=== PATIENT | female | born 1960 | race Caucasian/White ===

== ENCOUNTER 2017-05-04 10:18 | Day surgery (SDC) | payer OTHER ==
[2017-04-30 16:05] VITALS: BMI 28.3
[~2017-05-04 10:18] MED LIST: LACTATED RINGERS 1,000 ML IV SCH
[2017-05-04 11:17] VITALS: RESP 16; TEMP 97.6
--- NOTE | 2017-05-04 11:17 | P.GSHP ---
History of Present Illness H&P Date: 05/04/17 Chief Complaint: GERD This a 56-year-old female referred from Dr. Marie. Patient presents today for EGD. She's had issues with GERD. Past Medical History Past Medical History: Chest Pain / Angina, Fibromyalgia, GERD/Reflux, Supraventricular Tachycardia (SVT) Additional Past Medical History / Comment(s): migraines, arthritis, "broken rt ear drum" History of Any Multi-Drug Resistant Organisms: None Reported Past Surgical History: Cardiac Ablation, Ear Surgery, Orthopedic Surgery, Tonsillectomy, Tubal Ligation Additional Past Surgical History / Comment(s): rt ear x 2, rt little finger for dislocations Past Anesthesia/Blood Transfusion Reactions: Motion Sickness Smoking Status: Former smoker - Past Family History Mother Family Medical History: Cancer Sister(s) Family Medical History: Cancer Medications and Allergies Home Medications Medication Instructions Recorded Confirmed Type Diazepam [Diazepam] 5 mg PO DAILY PRN 01/18/14 05/04/17 History Acetaminophen with Codeine 2 tab PO BID PRN 04/30/17 05/04/17 History [Tylenol w/codeine #3] Aspirin/Acetaminophen/Caffeine 1 each PO BID PRN 04/30/17 05/04/17 History [Excedrin Migraine Caplet] Fish Oil/Dha/Epa [Fish Oil 1,200 1 each PO DAILY 04/30/17 05/04/17 History mg Fish Oil] Lysine [l-Lysine] 500 mg PO DAILY 04/30/17 05/04/17 History Multivitamins, Thera [Multivitamin 1 tab PO DAILY 04/30/17 05/04/17 History (formulary)] Allergies Allergy/AdvReac Type Severity Reaction Status Date / Time No Known Allergies Allergy Verified 04/30/17 15:51 Surgical - Exam - General well developed, no distress - Eyes PERRL - ENT normal pinna - Neck no masses - Respiratory normal expansion - Cardiovascular Rhythm: regular Assessment and Plan Assessment: GERD. We'll perform EGD.
[2017-05-04] MEDS ORDERED: LIDOCAINE 1% 20 ML VIAL (10MG/ML) FOR IV START INTRADERMA ONE (11:20)
[2017-05-04] MEDS ORDERED: LIDOCAINE 1% INJ 10MG/ML (20 ML MDV) ONE (11:23)
[2017-05-04] MEDS ORDERED: MIDAZOLAM 2 MG/2 ML VIAL ONE (11:23)
[2017-05-04] MEDS ORDERED: PROPOFOL 10 MG/ML 20 ML VIAL IV ONE (11:23)
--- NOTE | 2017-05-04 11:37 | P.OP ---
Date of Procedure: 05/04/17 Preoperative Diagnosis: GERD Postoperative Diagnosis: Mild duodenitis Mild antral gastritis Hiatal hernia Esophagitis Procedure(s) Performed: EGD Anesthesia: MAC Surgeon: Zana Rowley Pathology: other (Antrum, esophagus) Condition: stable Description of Procedure: The patient's placed on the endoscopy table lateral position. She received IV sedation. The gastroscope placed oropharynx and passed into the esophagus and stomach. Scope was then placed through the pylorus. The first and second portion of duodenum was examined. There appeared to be some mild inflammation. This area is biopsied. The scope was then brought back and the antrum this. Mildly inflamed. A biopsies performed. The scope was unretroflexed and remainder some appeared normal. There is moderate size hiatal hernia. The GE junction was at 38 cm. The distal esophagus appeared inflamed a biopsies performed. The proximal esophagus appeared normal. Scope was withdrawn for patient.
[2017-05-04 11:58] VITALS: BP 102/64; PULSE 83
== END 2017-05-04 12:15 | disposition home or self-care (01) ==
LOC: ORWHC2ENDO 10:18
PROVIDERS: ATTEND Surgery
DX: K21.0 Gastro-esophageal reflux disease with esophagitis (principal); K29.50 Unspecified chronic gastritis without bleeding; K29.80 Duodenitis without bleeding; K44.9 Diaphragmatic hernia without obstruction or gangrene; M79.7 Fibromyalgia; M19.90 Unspecified osteoarthritis, unspecified site; Z79.899 Other long term (current) drug therapy; Z87.891 Personal history of nicotine dependence; Z80.9 Family history of malignant neoplasm, unspecified
CPT/HCPCS: 43239; 81025; 88305; 88342; J2250; J2001; J2704

== ENCOUNTER → 2017-05-13 | Outpatient (CLI) | payer OTHER ==
[2017-05-13 16:41] LABS: Basophils % (A) 1 %; CH 31.3; CHCM 33.7; Eosinophils # (A) 0.2 k/uL (0-0.7); Eosinophils % (A) 3 %; HCT 37.5 % (34.0-46.0); HDW 2.74; HGB 12.2 gm/dL (11.4-16.0); Luc # (Auto) 0.23; Luc % (Auto) 3; Lymphocytes # (A) 2.5 k/uL (1.0-4.8); Lymphocytes % (A) 37 %; MCH 30.4 pg (25.0-35.0); MCHC 32.6 g/dL (31.0-37.0); MCV 93.3 fL (80.0-100.0); Mean Platelet Volume 7.2; Monocytes # (A) 0.4 k/uL (0-1.0); Monocytes % (A) 5 %; Neutrophils # (A) 3.5 k/uL (1.3-7.7); Neutrophils % (A) 51 %; RBC 4.02 m/uL (3.80-5.40); RDW 12.9 % (11.5-15.5); WBC 6.8 k/uL (3.8-10.6); WBC (Perox) 6.79
== END ==
LOC: LABPAT 15:58
PROVIDERS: ATTEND Surgery
DX: Z01.812 Encounter for preprocedural laboratory examination (principal); K21.0 Gastro-esophageal reflux disease with esophagitis; D64.9 Anemia, unspecified; F17.200 Nicotine dependence, unspecified, uncomplicated
CPT/HCPCS: 36415; 85025

== ENCOUNTER → 2017-06-26 | Outpatient (CLI) | payer OTHER ==
--- NOTE | 2017-06-26 11:06 | FL ---
Barium swallow HISTORY: Epigastric pain, status post hiatal hernia repair surgery Correlation to previous exam 05/20/2017 She was given high density barium to drink. 1 minute 38 seconds fluoroscopy time supplied. 49 images. The swallowing mechanism is normal. Postop changes are noted at the gastroesophageal junction. Some m inimal tertiary esophageal contractions were transient. There is no obstruction to flow. No gastroeso phageal reflux evident. No evident pneumoperitoneum. No hiatal hernia. There is some improvement in t he edema seen on previous exam. Column of contrast across the gastroesophageal junction shows some im provement in caliber. IMPRESSION: Postop changes. No evident complication status post hiatal hernia repair.
== END | disposition home or self-care (01) ==
LOC: RADFLMAIN 10:08
PROVIDERS: ATTEND Surgery
DX: R10.13 Epigastric pain (principal); Z98.890 Other specified postprocedural states
CPT/HCPCS: 74220

== ENCOUNTER → 2017-12-07 | Outpatient (CLI) | payer OTHER ==
--- NOTE | 2017-12-08 10:25 | MM ---
Reason for exam: screening (asymptomatic). Last mammogram was performed 1 year and 9 months ago. History: Family history of breast cancer in mother at age 50 and breast cancer in aunt at age 40. Physical Findings: A clinical breast exam by your physician is recommended on an annual basis and results should be correlated with mammographic findings. MG Screening Mammo w CAD Bilateral CC and MLO view(s) were taken. Prior study comparison: February 28, 2016, mammogram, performed at [facility]. May 17, 2013, mammogram, performed at [facility]. There are scattered fibroglandular densities. Finding: There are typically benign round, grouped/clustered calcifications in the right breast. There is no discrete abnormality. ASSESSMENT: Benign, BI-RAD 2 RECOMMENDATION: Routine screening mammogram of both breasts in 1 year.
== END | disposition home or self-care (01) ==
LOC: RADMAMWWP 14:45
PROVIDERS: ATTEND Family Medicine
DX: Z12.31 Encounter for screening mammogram for malignant neoplasm of breast (principal)
CPT/HCPCS: 77067

== ENCOUNTER 2018-02-03 08:38 | Day surgery (SDC) | payer OTHER ==
[2018-02-01 11:38] VITALS: BMI 28.3
[~2018-02-03 08:38] MED LIST changes: +LIDOCAINE 1% 20 ML VIAL (10MG/ML) FOR IV START INTRADERMA PRN
[2018-02-03 09:39] VITALS: RESP 16; TEMP 97.6
--- NOTE | 2018-02-03 10:15 | P.GSHP ---
History of Present Illness H&P Date: 02/03/18 Chief Complaint: Screening colonoscopy, GERD This a 57-year-old female referred from Dr. Lauren Vale. Patient rents today for EGD and colonoscopy. Had some issues with GERD. Past Medical History Past Medical History: Chest Pain / Angina, Fibromyalgia, GERD/Reflux, Musculoskeletal Disorder, Neurologic Disorder, Supraventricular Tachycardia (SVT ) Additional Past Medical History / Comment(s): migraines, arthritis, "broken rt ear drum", degenerative disc disease, " History of Any Multi-Drug Resistant Organisms: None Reported Past Surgical History: Cardiac Ablation, Ear Surgery, Hernia Repair, Orthopedic Surgery, Tonsillectomy, Tubal Ligation Additional Past Surgical History / Comment(s): rt ear x 2, rt little finger for dislocations Past Anesthesia/Blood Transfusion Reactions: No Reported Reaction Smoking Status: Former smoker - Past Family History Mother Family Medical History: Cancer Sister(s) Family Medical History: Cancer Medications and Allergies Home Medications Medication Instructions Recorded Confirmed Type Diazepam 5 mg PO HS PRN 01/18/14 02/03/18 History Aspirin/Acetaminophen/Caffeine 1 tab PO BID PRN 04/30/17 02/01/18 History [Excedrin Migraine Caplet] Fish Oil/Dha/Epa [Fish Oil 1,200 1 cap PO DAILY 04/30/17 02/01/18 History mg Fish Oil] Multivitamins, Thera [Multivitamin 1 tab PO DAILY 04/30/17 02/01/18 History (formulary)] Allergies Allergy/AdvReac Type Severity Reaction Status Date / Time No Known Allergies Allergy Verified 02/01/18 11:32 Surgical - Exam Vital Signs Temp Pulse Resp BP Pulse Ox 97.6 F 75 16 111/76 96 02/03/18 09:38 02/03/18 09:38 02/03/18 09:38 02/03/18 09:38 02/03/18 09:38 - General well developed, well nourished, no distress - Eyes PERRL - ENT normal pinna - Neck no masses - Respiratory normal expansion - Cardiovascular Rhythm: regular - Abdomen Abdomen: soft, non tender Assessment and Plan Assessment: GERD we'll perform EGD. We'll also perform screening colonoscopy.
[2018-02-03] MEDS ORDERED: LIDOCAINE 1% INJ 10MG/ML (20 ML MDV) ONE (10:22)
[2018-02-03] MEDS ORDERED: PROPOFOL 10 MG/ML 20 ML VIAL IV ONE (10:22)
--- NOTE | 2018-02-03 10:42 | P.OP ---
Date of Procedure: 02/03/18 Preoperative Diagnosis: Epigastric abdominal pain GERD. Screening colonoscopy Postoperative Diagnosis: Antral ulceration No evidence of recurrent hiatal hernia Mild diverticulosis Procedure(s) Performed: EGD Colonoscopy Anesthesia: MAC Surgeon: Zana Rowley Pathology: other (Antral ulcer) Condition: stable Disposition: PACU Description of Procedure: The patient's placed on the endoscopy table in the lateral position. She received IV sedation. The gastroscope placed oropharynx and passed into the esophagus into the stomach. Scope was then placed through the pylorus. The first and second portion of duodenum appeared normal. Scope was then brought back the antrum and there were several small ulcers seen. This area is biopsied. Scope was then retroflexed and the remainder of the stomach appeared normal. There was a previous fundoplication wrap this appeared to be in the appropriate position. There is no evidence of recurrent hiatal hernia. The distal esophagus appeared normal. The GE junction was at 40 cm. The esophagus appeared normal. Scope was withdrawn for patient. Next digital rectal exam was performed. The colonoscope was then placed patient anus passed throughout the entire colon. The ileocecal valve sutures. The cecum, ascending and transverse colon appeared normal. In the descending and sigmoid colon there is mild diverticulosis. There is no evidence of diverticulitis. Scope summer back the rectum and this appeared normal. Scope withdrawn for patient.
[2018-02-03 11:11] VITALS: BP 131/83; PULSE 70
== END 2018-02-03 11:47 | disposition home or self-care (01) ==
LOC: ORWHC2ENDO 08:38
PROVIDERS: ATTEND Surgery
DX: Z12.11 Encounter for screening for malignant neoplasm of colon (principal); K57.90 Diverticulosis of intestine, part unspecified, without perforation or abscess without bleeding; M79.7 Fibromyalgia; K21.9 Gastro-esophageal reflux disease without esophagitis; M13.80 Other specified arthritis, unspecified site; Z87.891 Personal history of nicotine dependence; K29.50 Unspecified chronic gastritis without bleeding
CPT/HCPCS: 81025; 88305; 45378; 43239; J2001; J2704

== ENCOUNTER 2018-05-05 08:41 | Day surgery (SDC) | payer OTHER ==
[2018-04-30 10:27] VITALS: BMI 29.4
[~2018-05-05 08:41] MED LIST changes: +DEXAMETHASONE SOD PHOSPHATE 10 MG/ML 1 ML VIAL IV ONE; +HEPARIN SODIUM,PORCINE 5,000 UNIT/ML 1 ML VIAL SQ ONE; -LIDOCAINE 1% 20 ML VIAL (10MG/ML) FOR IV START INTRADERMA PRN; +ONDANSETRON 4 MG/2 ML VIAL IVP ONE; +ceFAZolin IN SWFI 2 GM/20 ML SYRINGE IVP ONE
[2018-05-05] MEDS ORDERED: LIDOCAINE 1% 20 ML VIAL (10MG/ML) FOR IV START INTRADERMA ONE (09:31)
--- NOTE | 2018-05-05 09:40 | P.GSHP ---
History of Present Illness H&P Date: 05/05/18 Chief Complaint: Right upper quadrant pain This is a 57-year-old female presents today for laparoscopic cholecystectomy. Patient's had complaints of right upper quadrant pain. Her recent HIDA scan shows a hyperkinetic gallbladder consistent with biliary hypokinesis and chronic cholecystitis. Past Medical History Past Medical History: Chest Pain / Angina, Fibromyalgia, GERD/Reflux, Musculoskeletal Disorder, Neurologic Disorder, Supraventricular Tachycardia (SVT ) Additional Past Medical History / Comment(s): GALLBLADDER ATTACK, migraines, arthritis, "broken rt ear drum" STATES LETTLE HEARING IN RT EAR, degenerative disc disease, History of Any Multi-Drug Resistant Organisms: None Reported Past Surgical History: Cardiac Ablation, Ear Surgery, Hernia Repair, Orthopedic Surgery, Tonsillectomy, Tubal Ligation Additional Past Surgical History / Comment(s): rt ear x 2, rt little finger for dislocations Past Anesthesia/Blood Transfusion Reactions: No Reported Reaction Smoking Status: Former smoker - Past Family History Mother Family Medical History: Cancer Sister(s) Family Medical History: Cancer Medications and Allergies Home Medications Medication Instructions Recorded Confirmed Type Aspirin/Acetaminophen/Caffeine 1 tab PO BID PRN 04/30/17 04/30/18 History [Excedrin Migraine Caplet] Fish Oil/Dha/Epa [Fish Oil 1,200 1 cap PO DAILY 04/30/17 04/30/18 History mg Fish Oil] Multivitamins, Thera [Multivitamin 1 tab PO DAILY 04/30/17 04/30/18 History (formulary)] Omeprazole 40 mg PO DAILY #60 capsule. 02/03/18 05/05/18 Rx Allergies Allergy/AdvReac Type Severity Reaction Status Date / Time No Known Allergies Allergy Verified 05/05/18 09:04 Surgical - Exam Vital Signs Temp Pulse Resp BP Pulse Ox 97.9 F 65 16 106/68 95 05/05/18 08:59 05/05/18 08:59 05/05/18 08:59 05/05/18 08:59 05/05/18 08:59 - General well developed, no distress - Eyes PERRL - ENT normal pinna - Neck no masses - Respiratory normal expansion - Cardiovascular Rhythm: regular - Abdomen Abdomen: soft, non tender Assessment and Plan Assessment: Hyperkinetic gallbladder Chronic cholecystitis We'll perform laparoscopic cholecystectomy.
[2018-05-05] MEDS ORDERED: GLYCOPYRROLATE 0.2 MG/ML 2 ML VIAL ONE (10:01)
[2018-05-05] MEDS ORDERED: ROCURONIUM BROMIDE 10 MG/ML 10 ML VIAL IV ONE (10:01)
[2018-05-05] MEDS ORDERED: KETOROLAC 30 MG/ML 1 ML VIAL ONE (10:01)
[2018-05-05] MEDS ORDERED: SUCCINYLCHOLINE CHLORIDE 100 MG/5 ML SYR IV ONE (10:01)
[2018-05-05] MEDS ORDERED: MIDAZOLAM 2 MG/2 ML VIAL ONE (10:01)
[2018-05-05] MEDS ORDERED: NEOSTIGMINE 1 MG/ML 10 ML VIAL ONE (10:01)
[2018-05-05] MEDS ORDERED: fentaNYL (PF) 50 MCG/ML 2 ML AMP ONE (10:01)
[2018-05-05] MEDS ORDERED: PROPOFOL 10 MG/ML 20 ML VIAL IV ONE (10:01)
[2018-05-05] MEDS ORDERED: LIDOCAINE 1% INJ 10MG/ML (20 ML MDV) ONE (10:01)
[2018-05-05] MEDS ORDERED: HYDROmorphone (PF) 1 MG/ML ONE (10:01)
[2018-05-05] MEDS ORDERED: BUPIVACAIN-EPI 0.25%-1:200,000 30 ML VIAL SQ ONE (10:28)
[2018-05-05] MEDS ORDERED: LACTATED RINGERS 1,000 ML IV ONE (10:45)
--- NOTE | 2018-05-05 11:04 | P.OP ---
Date of Procedure: 05/05/18 Preoperative Diagnosis: Cholecystitis Postoperative Diagnosis: Cholecystitis Procedure(s) Performed: Laparoscopic cholecystectomy Anesthesia: DOUGLAS Surgeon: Zana Rowley Estimated Blood Loss (ml): 5 Pathology: other (Gallbladder) Condition: stable Disposition: PACU Description of Procedure: The patient was placed on the operating table. The patient received a general endotracheal tube anesthesia. The patients abdomen was prepped and draped in the usual sterile fashion. Through an infraumbilical stab incision, the fascia of the anterior abdominal wall was grasped with a pair of Kochers and then the Veress needle was placed in the peritoneal cavity. Position of the Veress needle was confirmed with positive drop test. The abdomen was then insufflated. After adequate insufflation, the 10 mm trocar was placed in the peritoneal cavity. Following this the laparoscope was placed in the peritoneal cavity. The patient was placed in the head-up, right side up position and then a 5 mm trocar was placed in the right lateral and right subcostal position under direct visualization. A 8 mm trocar was placed in the epigastric position. The gallbladder was grasped in the fundus and infundibulum. Traction on the gallbladder was placed in the lateral and the cephalad positions. The triangle of Calot was visualized.. The cystic duct was bluntly dissected until the union of the cystic duct and common bile duct was seen. The cystic duct was then divided and sealed with the Harmonic scissors. A PDS Endoloop was then placed throughout the cystic duct stump. The cystic artery divided and sealed with the Harmonic scissors. The gallbladder was then removed from the liver bed using Harmonic scissors. The gallbladder was then extracted through the epigastric port site. Operative field was checked for any bleeding spots and Harmonic scissors was used to coagulate the liver bed. The abdomen was irrigated. The trocars were removed. The skin was closed using interrupted 3-0 Vicryl suture. Dermabond dressing were applied. The patient tolerated the procedure well.
[2018-05-05 11:11] VITALS: TEMP 96.8
[2018-05-05] MEDS: HYDROmorphone 0.5 MG/0.5 ML SYRINGE IVP PRN ×3 (11:20→11:38)
[2018-05-05] MEDS ORDERED: ONDANSETRON 4 MG/2 ML VIAL IVP ONE (11:42)
[2018-05-05] MEDS ORDERED: PROMETHAZINE INJ 25 MG/ML 1 ML VIAL IVPB ONE (11:53)
[2018-05-05 12:24] VITALS: RESP 16
[2018-05-05 12:48] VITALS: BP 117/77; PULSE 51
== END 2018-05-05 13:33 | disposition home or self-care (01) ==
LOC: OR 08:41
PROVIDERS: ATTEND Surgery
DX: K81.1 Chronic cholecystitis (principal); K21.9 Gastro-esophageal reflux disease without esophagitis; M79.7 Fibromyalgia; M19.90 Unspecified osteoarthritis, unspecified site; Z87.891 Personal history of nicotine dependence; Z79.899 Other long term (current) drug therapy
CPT/HCPCS: 47562; 81025; 88304; J2250; J1644; J1100; J2550; J2710; J2405; J2001; J3010; J1885; J1170 ×2; J0330; J2704; J0690

== ENCOUNTER → 2018-12-25 | Outpatient (CLI) | payer OTHER ==
--- NOTE | 2018-12-25 10:45 | XR ---
EXAMINATION TYPE: XR abdomen 1V DATE OF EXAM: 12/25/2018 10:36 AM CLINICAL HISTORY: Change in bowel habits per order. TECHNIQUE: Two supine KUB images of the abdomen are obtained. COMPARISON: None. FINDINGS: Scattered gas is seen in non-distended small bowel loops. Gas and fecal material is seen in non-distended colon. Nondigested pill right lower quadrant suspected. Mild to moderate narrowing of both hip joints. IMPRESSION: Overall nonobstructive bowel gas pattern.
[2018-12-25 18:36] LABS: ALT 23 U/L (8-44); AST 19 U/L (13-35); African American GFR (CKD) 112.3 (60.0-200.0); Alkaline Phosphatase 94 U/L (41-126); BUN/Creat Ratio 32.86 Ratio (12.00-20.00); C Reactive Protein <0.4 mg/dL (0.0-0.8); Calcium 9.6 mg/dL (8.7-10.3); Carbon Dioxide 25.9 mmol/L (21.6-31.8); Chloride 107 mmol/L (96-109); Globulin 2.2 g/dL (1.6-3.3); Glucose 108 mg/dL (70-110); Potassium 4.4 mmol/L (3.5-5.5); Sodium 140 mmol/L (135-145); Total Bilirubin 0.3 mg/dL (0.3-1.2); Total Protein 6.6 g/dL (6.2-8.2)
[2018-12-27 11:59] LABS: Gliadin AB IgA, Unit 0.6 U/mL
== END | disposition home or self-care (01) ==
LOC: LABWHC1 10:17
PROVIDERS: ATTEND Internal Medicine
DX: R19.4 Change in bowel habit (principal)
CPT/HCPCS: 36415; 74018; 80053; 83516; 83630; 83993; 84439; 84443; 85652; 86140; 87045; 87046; 87328; 87329

== ENCOUNTER → 2018-12-29 | Outpatient (CLI) | payer OTHER ==
--- NOTE | 2018-12-30 14:54 | MM ---
Reason for exam: screening (asymptomatic). Last mammogram was performed 1 year and 1 month ago. History: Family history of breast cancer in mother at age 50 and breast cancer in aunt at age 40. Physical Findings: A clinical breast exam by your physician is recommended on an annual basis and results should be correlated with mammographic findings. MG Screening Mammo w CAD Bilateral CC and MLO view(s) were taken. Prior study comparison: December 07, 2017, bilateral MG screening mammo w CAD. February 28, 2016, mammogram, performed at [facility]. There are scattered fibroglandular densities. Focal asymmetry stable in the left upper outer quadrant. ASSESSMENT: Benign, BI-RAD 2 RECOMMENDATION: Routine screening mammogram of both breasts in 1 year.
== END | disposition home or self-care (01) ==
LOC: RADMAMWWP 12:30
PROVIDERS: ATTEND Family Medicine
DX: Z12.31 Encounter for screening mammogram for malignant neoplasm of breast (principal); Z80.3 Family history of malignant neoplasm of breast
CPT/HCPCS: 77067

== ENCOUNTER → 2019-08-04 | Day surgery (SDC) | payer OTHER ==
[2019-08-02 18:27] VITALS: BMI 31.1
[~2019-08-04] MED LIST changes: -DEXAMETHASONE SOD PHOSPHATE 10 MG/ML 1 ML VIAL IV ONE; -HEPARIN SODIUM,PORCINE 5,000 UNIT/ML 1 ML VIAL SQ ONE; +LIDOCAINE 1% 20 ML VIAL (10MG/ML) FOR IV START INTRADERMA PRN; +LIDOCAINE 1% INJ 10MG/ML (20 ML MDV) ONE; -ONDANSETRON 4 MG/2 ML VIAL IVP ONE; +PROPOFOL 10 MG/ML 20 ML VIAL IV ONE; -ceFAZolin IN SWFI 2 GM/20 ML SYRINGE IVP ONE
[2019-08-04 07:05] VITALS: TEMP 97
--- NOTE | 2019-08-04 07:54 | P.GSHP ---
History of Present Illness H&P Date: 08/04/19 Chief Complaint: Colitis, diarrhea Is a 58-year-old female with history of diarrhea. Patient rents today for colonoscopy tonight for possible colitis Past Medical History Past Medical History: Chest Pain / Angina, Fibromyalgia, GERD/Reflux, Musculoskeletal Disorder, Neurologic Disorder, Supraventricular Tachycardia (SVT) Additional Past Medical History / Comment(s): Hx migraines, arthritis, "broken rt ear drum" - loss of HEARING IN RT EAR, degenerative disc disease, diarrhea since gallbladder removed History of Any Multi-Drug Resistant Organisms: None Reported Past Surgical History: Cardiac Ablation, Cholecystectomy, Ear Surgery, Hernia Repair, Orthopedic Surgery, Tonsillectomy, Tubal Ligation Additional Past Surgical History / Comment(s): rt ear x 2, rt little finger for dislocations, hiatal hernia surg, Colonoscopy, EGD Past Anesthesia/Blood Transfusion Reactions: No Reported Reaction Smoking Status: Former smoker - Past Family History Mother Family Medical History: Cancer Sister(s) Family Medical History: Cancer Medications and Allergies Home Medications Medication Instructions Recorded Confirmed Type Aspirin/Acetaminophen/Caffeine 1 tab PO BID PRN 04/30/17 08/04/19 History [Excedrin Migraine Caplet] Fish Oil/Dha/Epa [Fish Oil 1,200 1 cap PO DAILY 04/30/17 08/04/19 History mg Fish Oil] Multivitamins, Thera [Multivitamin 1 tab PO DAILY 04/30/17 08/04/19 History (formulary)] Lysine HCl [l-Lysine] 1,000 mg PO DAILY 08/02/19 08/04/19 History Allergies Allergy/AdvReac Type Severity Reaction Status Date / Time No Known Allergies Allergy Verified 08/04/19 06:59 Surgical - Exam Vital Signs Temp Pulse Resp BP Pulse Ox 97.0 F L 91 18 160/78 94 L 08/04/19 07:03 08/04/19 07:03 08/04/19 07:03 08/04/19 07:03 08/04/19 07:03 - General well developed, well nourished, no distress - Eyes PERRL - ENT normal pinna - Neck no masses - Respiratory normal expansion - Cardiovascular Rhythm: regular - Abdomen Abdomen: soft, non tender Assessment and Plan Assessment: Diarrhea. We'll perform colonoscopy to evaluate for colitis.
--- NOTE | 2019-08-04 08:16 | P.OP ---
Date of Procedure: 08/04/19 Preoperative Diagnosis: Diarrhea Postoperative Diagnosis: Diverticulosis Random rectal biopsy pathology pending Procedure(s) Performed: Colonoscopy Anesthesia: MAC Surgeon: Zana Rowley Pathology: other (Rectal biopsy) Condition: stable Disposition: PACU Description of Procedure: Patient's placed on the endoscopy table in the lateral position. She received IV sedation. Digital rectal exam was performed which revealed no abnormalities. The proximal colonoscope was then placed patient anus passed throughout the entire colon. The ileocecal valve was visualized. Cecum, ascending and transverse colon appeared normal. In the descending; there is mild diverticulosis. There is no evidence of diverticula is. The scope was brought back the rectum this appeared normal. However due the patient's symptoms of diarrhea or. This was performed with cold forcep. Scope was withdrawn for patient.
[2019-08-04 08:19] VITALS: RESP 16
[2019-08-04 08:40] VITALS: BP 104/62; PULSE 73
== END ==
LOC: ORWHC2ENDO 06:47
PROVIDERS: ATTEND Surgery
DX: K57.30 Diverticulosis of large intestine without perforation or abscess without bleeding (principal); R19.7 Diarrhea, unspecified; K21.9 Gastro-esophageal reflux disease without esophagitis; M79.7 Fibromyalgia; I47.1 Supraventricular tachycardia; M19.90 Unspecified osteoarthritis, unspecified site; H91.8X2 Other specified hearing loss, left ear; Z97.2 Presence of dental prosthetic device (complete) (partial); Z90.49 Acquired absence of other specified parts of digestive tract; Z98.890 Other specified postprocedural states; Z87.891 Personal history of nicotine dependence; Z80.9 Family history of malignant neoplasm, unspecified; Z79.82 Long term (current) use of aspirin; Z79.899 Other long term (current) drug therapy; K52.9 Noninfective gastroenteritis and colitis, unspecified
CPT/HCPCS: 88305; 45380; J2001; J2704

== ENCOUNTER → 2019-09-13 | Outpatient (CLI) | payer OTHER ==
--- NOTE | 2019-09-13 15:34 | CT ---
EXAMINATION TYPE: CT abdomen pelvis w con DATE OF EXAM: 09/13/2019 COMPARISON: None HISTORY: Left sided abdominal pain. CT DLP: 949.1 mGycm CONTRAST: CT scan of the abdomen and pelvis is performed with Oral Contrast and with IV Contrast, patient injec tihen with 100 mL of Isovue 300. FINDINGS: LUNG BASES-: No visible nodule. No infiltrate. LIVER/GB: The gallbladder is surgically absent. No space occupying hepatic lesion. Biliary tree is of normal caliber. PANCREAS: No inflammation. No distinct mass. SPLEEN: No splenic enlargement. No lesion seen. ADRENALS: No nodule. No thickening. KIDNEYS/BLADDER: No hydronephrosis. No nephrolithiasis. No distinct renal mass. Urinary bladder g rossly unremarkable. BOWEL: Normal appendix. Normal bowel caliber. No inflammation. Scattered colonic diverticulosis wit hout diverticulitis. GENITAL ORGANS: Nonspecific right ovarian cystic lesion with mural nodule measuring 4.7 cm. Neoplasm is not excluded. Appropriate follow-up is advised. Left ovary is unremarkable as is the uterus. LYMPH NODES: No greater than 1cm abdominal or pelvic lymph nodes are appreciated. AORTA: No significant abnormality. OSSEOUS STRUCTURES: No significant abnormality is seen. OTHER: No significant additional abnormality is seen. IMPRESSION: 1. Nonspecific right ovarian cystic lesion with mural nodule measuring 4.7 cm. Neoplasm is not exclud ed.
== END | disposition home or self-care (01) ==
LOC: RADCTMAIN 13:19
PROVIDERS: ATTEND Surgery
DX: N83.201 Unspecified ovarian cyst, right side (principal)
CPT/HCPCS: 74177; Q9967 ×2

== ENCOUNTER 2020-04-28 10:24 | Emergency (ER) | payer BC, OTHER ==
[2020-04-28] MEDS ORDERED: SODIUM CHLORIDE 0.9% 1,000 ML IV STA ×2 (10:46)
--- NOTE | 2020-04-28 10:50 | ED ---
Dizziness HPI - General Stated Complaint: near syncope Time Seen by Provider: 04/28/20 10:33 Source: RN notes reviewed, old records reviewed - History of Present Illness Initial Comments: Patient is a 69-year-old female who presents the emergency department today for a near syncopal episode due to lower abdominal pain and pelvic pain after she urinated today. Patient reports that she has had episodes for the past 3 months when she urinates from time to time she'll sharp pain in her lower abdomen. She reports the pain became so severe she started to sweat and went into the office from work. 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 She denies any chest pain shortness breath. She reports she is now feeling somewhat improved. - Related Data Home Medications Medication Instructions Recorded Confirmed Aspirin/Acetaminophen/Caffeine 1 tab PO BID PRN 04/30/17 04/28/20 [Excedrin Migraine Caplet] Fish Oil/Dha/Epa [Fish Oil 1,200 1 cap PO DAILY 04/30/17 04/28/20 mg Fish Oil] Multivitamins, Thera [Multivitamin 1 tab PO DAILY 04/30/17 04/28/20 (formulary)] Lysine HCl [l-Lysine] 1,000 mg PO DAILY 08/02/19 04/28/20 Previous Rx's Medication Instructions Recorded Ibuprofen [Motrin] 600 mg PO Q8HR PRN #20 tab 04/28/20 traMADol HCL [Ultram] 50 mg PO Q6HR PRN 3 Days #12 tab 04/28/20 Allergies Allergy/AdvReac Type Severity Reaction Status Date / Time No Known Allergies Allergy Verified 04/28/20 14:33 Review of Systems ROS Statement: Those systems with pertinent positive or pertinent negative responses have been documented in the HPI. ROS Other: All systems not noted in ROS Statement are negative. Past Medical History Past Medical History: Chest Pain / Angina, Fibromyalgia, GERD/Reflux, Musculoskeletal Disorder, Neurologic Disorder, Supraventricular Tachycardia (SVT) Additional Past Medical History / Comment(s): Hx migraines, arthritis, "broken rt ear drum" - loss of HEARING IN RT EAR, degenerative disc disease, diarrhea since gallbladder removed History of Any Multi-Drug Resistant Organisms: None Reported Past Surgical History: Cardiac Ablation, Cholecystectomy, Ear Surgery, Hernia Repair, Orthopedic Surgery, Tonsillectomy, Tubal Ligation Additional Past Surgical History / Comment(s): rt ear x 2, rt little finger for dislocations, hiatal hernia surg, Colonoscopy, EGD Past Anesthesia/Blood Transfusion Reactions: No Reported Reaction Past Psychological History: No Psychological Hx Reported Past Alcohol Use History: None Reported Additional Past Alcohol Use History / Comment(s): quit smoking 2017, started age 17, 1 PPD; no alcohol in past year Past Drug Use History: None Reported - Past Family History Mother Family Medical History: Cancer Sister(s) Family Medical History: Cancer General Exam - General Exam Comments Initial Comments: 39-year-old female. Alert and oriented 3. No distress. General appearance: alert, in no apparent distress Head exam: Present: atraumatic Eye exam: Present: normal appearance ENT exam: Present: normal exam Neck exam: Present: normal inspection. Absent: tenderness, meningismus, lymphadenopathy Respiratory exam: Present: normal lung sounds bilaterally. Absent: respiratory distress, wheezes, rales, rhonchi, stridor GI/Abdominal exam: Present: soft, tenderness (RLQ), normal bowel sounds. Absent: distended, guarding, rebound, rigid Extremities exam: Present: normal inspection, full ROM, normal capillary refill. Absent: tenderness, pedal edema, joint swelling, calf tenderness Back exam: Present: normal inspection Neurological exam: Present: alert, oriented X3, CN II-XII intact Psychiatric exam: Present: normal affect, normal mood Skin exam: Present: warm, dry, intact, normal color. Absent: rash Course Vital Signs 04/28/20 04/28/20 04/28/20 10:54 13:06 15:17 Temperature 98.0 F Pulse Rate 73 81 75 Respiratory 18 18 16 Rate Blood Pressure 121/74 123/85 113/82 O2 Sat by Pulse 94 L 99 98 Oximetry Medical Decision Making - Medical Decision Making 59 year old female with RLQ abdominal pain after urination for the past 3 months. Today this pain caused a vasovagal episode. PT had us showing 4.5cm by 4.3 cm ovarian cyst. Discussed this seems to be related to pain. Labs were normal. Pt EKG and troponin are normalAdded CA 125 and CEA. Discussed no sign of torsion on ovarian cyst at this time. 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 - Lab Data Result diagrams: 04/28/20 11:06 04/28/20 11:06 Lab Results 04/28/20 04/28/20 04/28/20 Range/Units 10:46 11:06 11:06 WBC 7.0 (3.8-10.6) k/uL RBC 4.44 (3.80-5.40) m/uL Hgb 13.4 (11.4-16.0) gm/dL Hct 40.0 (34.0-46.0) % MCV 90.1 (80.0-100.0) fL MCH 30.1 (25.0-35.0) pg MCHC 33.4 (31.0-37.0) g/dL RDW 13.2 (11.5-15.5) % Plt Count 323 (150-450) k/uL MPV 7.4 Neutrophils % 60 % Lymphocytes % 28 % Monocytes % 5 % Eosinophils % 4 % Basophils % 1 % Neutrophils # 4.2 (1.3-7.7) k/uL Lymphocytes # 2.0 (1.0-4.8) k/uL Monocytes # 0.3 (0-1.0) k/uL Eosinophils # 0.3 (0-0.7) k/uL Basophils # 0.1 (0-0.2) k/uL PT 9.8 (9.0-12.0) sec INR 0.9 (<1.2) APTT 18.0 L (22.0-30.0) sec Sodium (137-145) mmol/L Potassium (3.5-5.1) mmol/L Chloride (98-107) mmol/L Carbon Dioxide (22-30) mmol/L Anion Gap mmol/L BUN (7-17) mg/dL Creatinine (0.52-1.04) mg/dL Est GFR (CKD-EPI)AfAm (>60 ml/min/1.73 sqM) Est GFR (CKD-EPI)NonAf (>60 ml/min/1.73 sqM) Glucose (74-99) mg/dL Calcium (8.4-10.2) mg/dL Total Bilirubin (0.2-1.3) mg/dL AST (14-36) U/L ALT (4-34) U/L Alkaline Phosphatase (38-126) U/L Troponin I (0.000-0.034) ng/mL Total Protein (6.3-8.2) g/dL Albumin (3.5-5.0) g/dL Carcinoembryonic Ag (0.0-4.9) ng/mL CA 125 Antigen (0.0-30.1) U/mL Urine Color Light Yellow Urine Appearance Clear (Clear) Urine pH 5.5 (5.0-8.0) Ur Specific Pierson 1.013 (1.001-1.035) Urine Protein Negative (Negative) Urine Glucose (UA) Negative (Negative) Urine Ketones Negative (Negative) Urine Blood Negative (Negative) Urine Nitrite Negative (Negative) Urine Bilirubin Negative (Negative) Urine Urobilinogen <2.0 (<2.0) mg/dL Ur Leukocyte Esterase Large H (Negative) Urine RBC 11 H (0-5) /hpf Urine WBC 4 (0-5) /hpf Ur Squamous Epith Cells 2 (0-4) /hpf Urine Bacteria Rare H (None) /hpf Hyaline Casts 1 (0-2) /lpf Urine Mucus Rare H (None) /hpf 04/28/20 04/28/20 04/28/20 Range/Units 11:06 11:06 11:06 WBC (3.8-10.6) k/uL RBC (3.80-5.40) m/uL Hgb (11.4-16.0) gm/dL Hct (34.0-46.0) % MCV (80.0-100.0) fL MCH (25.0-35.0) pg MCHC (31.0-37.0) g/dL RDW (11.5-15.5) % Plt Count (150-450) k/uL MPV Neutrophils % % Lymphocytes % % Monocytes % % Eosinophils % % Basophils % % Neutrophils # (1.3-7.7) k/uL Lymphocytes # (1.0-4.8) k/uL Monocytes # (0-1.0) k/uL Eosinophils # (0-0.7) k/uL Basophils # (0-0.2) k/uL PT (9.0-12.0) sec INR (<1.2) APTT (22.0-30.0) sec Sodium 140 (137-145) mmol/L Potassium 4.0 (3.5-5.1) mmol/L Chloride 110 H (98-107) mmol/L Carbon Dioxide 25 (22-30) mmol/L Anion Gap 5 mmol/L BUN 23 H (7-17) mg/dL Creatinine 0.67 (0.52-1.04) mg/dL Est GFR (CKD-EPI)AfAm >90 (>60 ml/min/1.73 sqM) Est GFR (CKD-EPI)NonAf >90 (>60 ml/min/1.73 sqM) Glucose 104 H (74-99) mg/dL Calcium 9.0 (8.4-10.2) mg/dL Total Bilirubin 0.3 (0.2-1.3) mg/dL AST 32 (14-36) U/L ALT 23 (4-34) U/L Alkaline Phosphatase 79 (38-126) U/L Troponin I <0.012 (0.000-0.034) ng/mL Total Protein 6.7 (6.3-8.2) g/dL Albumin 4.0 (3.5-5.0) g/dL Carcinoembryonic Ag 0.6 (0.0-4.9) ng/mL CA 125 Antigen (0.0-30.1) U/mL Urine Color Urine Appearance (Clear) Urine pH (5.0-8.0) Ur Specific Pierson (1.001-1.035) Urine Protein (Negative) Urine Glucose (UA) (Negative) Urine Ketones (Negative) Urine Blood (Negative) Urine Nitrite (Negative) Urine Bilirubin (Negative) Urine Urobilinogen (<2.0) mg/dL Ur Leukocyte Esterase (Negative) Urine RBC (0-5) /hpf Urine WBC (0-5) /hpf Ur Squamous Epith Cells (0-4) /hpf Urine Bacteria (None) /hpf Hyaline Casts (0-2) /lpf Urine Mucus (None) /hpf 14/20 Range/Units 14:57 WBC (3.8-10.6) k/uL RBC (3.80-5.40) m/uL Hgb (11.4-16.0) gm/dL Hct (34.0-46.0) % MCV (80.0-100.0) fL MCH (25.0-35.0) pg MCHC (31.0-37.0) g/dL RDW (11.5-15.5) % Plt Count (150-450) k/uL MPV Neutrophils % % Lymphocytes % % Monocytes % % Eosinophils % % Basophils % % Neutrophils # (1.3-7.7) k/uL Lymphocytes # (1.0-4.8) k/uL Monocytes # (0-1.0) k/uL Eosinophils # (0-0.7) k/uL Basophils # (0-0.2) k/uL PT (9.0-12.0) sec INR (<1.2) APTT (22.0-30.0) sec Sodium (137-145) mmol/L Potassium (3.5-5.1) mmol/L Chloride (98-107) mmol/L Carbon Dioxide (22-30) mmol/L Anion Gap mmol/L BUN (7-17) mg/dL Creatinine (0.52-1.04) mg/dL Est GFR (CKD-EPI)AfAm (>60 ml/min/1.73 sqM) Est GFR (CKD-EPI)NonAf (>60 ml/min/1.73 sqM) Glucose (74-99) mg/dL Calcium (8.4-10.2) mg/dL Total Bilirubin (0.2-1.3) mg/dL AST (14-36) U/L ALT (4-34) U/L Alkaline Phosphatase (38-126) U/L Troponin I (0.000-0.034) ng/mL Total Protein (6.3-8.2) g/dL Albumin (3.5-5.0) g/dL Carcinoembryonic Ag (0.0-4.9) ng/mL CA 125 Antigen 17.3 (0.0-30.1) U/mL Urine Color Urine Appearance (Clear) Urine pH (5.0-8.0) Ur Specific Pierson (1.001-1.035) Urine Protein (Negative) Urine Glucose (UA) (Negative) Urine Ketones (Negative) Urine Blood (Negative) Urine Nitrite (Negative) Urine Bilirubin (Negative) Urine Urobilinogen (<2.0) mg/dL Ur Leukocyte Esterase (Negative) Urine RBC (0-5) /hpf Urine WBC (0-5) /hpf Ur Squamous Epith Cells (0-4) /hpf Urine Bacteria (None) /hpf Hyaline Casts (0-2) /lpf Urine Mucus (None) /hpf 04/28/20 11:23 EKG shows normal sinus rhythm normal EKG. Ventricular rate of 77 bpm. WA interval 158 ms. QS duration 78 ms. QT QTc is 392/[address] elevation. - Radiology Data Radiology results: report reviewed Exam is somewhat limited. Cystic right ovarian lesion is again seen consider follow-up. Normal bowel gas pattern. Chest x-rays negative for acute cardiopulmonary process. Reviewed CT from [facility] and negative for acute process. evidnece of R ovarian cyst seen. Disposition Clinical Impression: Right ovarian cyst, Near syncope Disposition: HOME SELF-CARE Condition: Good Instructions (If sedation given, give patient instructions): Ovarian Cyst (ED) Additional Instructions: Patient advised to follow-up with primary care doctor and [employer]. Take medication as prescribed for further pain. Return the ED if any alarming signs or symptoms occur. Prescriptions: Ibuprofen [Motrin] 600 mg PO Q8HR PRN #20 tab PRN Reason: Pain traMADol HCL [Ultram] 50 mg PO Q6HR PRN 3 Days #12 tab PRN Reason: Pain Is patient prescribed a controlled substance at d/c from ED?: No Referrals: Lauren Vale DO [Primary Care Provider] - 1-2 days Wayne Yu MD [STAFF PHYSICIAN] - 1-2 days Sonia Danielle MD [REFERRING] - 1-2 days Time of Disposition: 14:58
[2020-04-28 10:59] VITALS: TEMP 98
[2020-04-28 11:51] LABS: ALT 23 U/L (4-34); AST 32 U/L (14-36); African American GFR (CKD) >90 (>60 ml/min/1.73 sqM); Alkaline Phosphatase 79 U/L (38-126); Anion Gap 5 mmol/L; Blood Urea Nitrogen 23 mg/dL (7-17); Carbon Dioxide 25 mmol/L (22-30); Chloride 110 mmol/L (98-107); Glucose 104 mg/dL (74-99); Non-African American GFR(CKD) >90 (>60 ml/min/1.73 sqM); Sodium 140 mmol/L (137-145); Total Bilirubin 0.3 mg/dL (0.2-1.3); Total Protein 6.7 g/dL (6.3-8.2)
[2020-04-28 11:56] LABS: Basophils # (A) 0.1 k/uL (0-0.2); Basophils % (A) 1 %; Eosinophils # (A) 0.3 k/uL (0-0.7); Eosinophils % (A) 4 %; HGB 13.4 gm/dL (11.4-16.0); Lymphocytes % (A) 28 %; MCH 30.1 pg (25.0-35.0); MCHC 33.4 g/dL (31.0-37.0); MCV 90.1 fL (80.0-100.0); Mean Platelet Volume 7.4; Monocytes # (A) 0.3 k/uL (0-1.0); Monocytes % (A) 5 %; Neutrophils # (A) 4.2 k/uL (1.3-7.7); Neutrophils % (A) 60 %; Platelet Count 323 k/uL (150-450); RBC 4.44 m/uL (3.80-5.40); RDW 13.2 % (11.5-15.5)
[2020-04-28 12:01] LABS: INR 0.9 (<1.2); Prothrombin Time 9.8 sec (9.0-12.0)
--- NOTE | 2020-04-28 12:28 | XR ---
EXAMINATION TYPE: XR chest 2V DATE OF EXAM: 04/28/2020 COMPARISON: Prior chest x-ray 11/21/2013 HISTORY: Syncope, pain and cramping TECHNIQUE: Frontal and lateral views of the chest are obtained. FINDINGS: There is no focal air space opacity, pleural effusion, or pneumothorax seen. The cardiac silhouette size is within normal limits. Aorta shows calcification. The osseous structures are intac t. IMPRESSION: No acute cardiopulmonary process.
--- NOTE | 2020-04-28 12:30 | XR ---
KUB HISTORY: Abdominal pain Frontal KUB on 2 images There is mild spinal curvature. There are overlying cardiac leads. There is no evident bowel obstruct ion or pneumoperitoneum. No pathologic calcification evident. IMPRESSION: Nonspecific bowel gas pattern.
--- NOTE | 2020-04-28 13:33 | US ---
EXAMINATION TYPE: US transvaginal DATE OF EXAM: 04/28/2020 COMPARISON: CT 09/13/2019 CLINICAL HISTORY: lower abdominal pain. pelvic pain, history of ovarian cyst TECHNIQUE: Transvaginal (TV). Date of LMP: unknown EXAM MEASUREMENTS: Uterus: 7.3 x 3.3 x 3.4 cm Endometrial Stripe: 0.4 cm Right Ovary: 3.9 x 4.5 x 4.3 cm Left Ovary: unable to visualize 1. Uterus: Anteverted heterogeneous 2. Endometrium: appears wnl 3. Right Ovary: cystic area = 3.9 x 4.5 x 4.3cm with little to no surrounding ovarian tissue seen 4. Left Ovary: Obscured by overlying bowel gas 5. Left Adnexa: wnl 6. Posterior cul-de-sac: wnl IMPRESSION: Exam somewhat limited. Cystic right ovarian lesion is again seen, consider follow-up
[2020-04-28 14:29] LABS: Appearance,Urine Clear (Clear); Bacteria,Urine Rare /hpf; Bilirubin,Urine Negative (Negative); Blood,Urine Negative (Negative); Color,Urine Light Yellow; Glucose,Urine (UA) Negative (Negative); Hyaline Casts,Urine 1 /lpf (0-2); Ketones,Urine Negative (Negative); Leukocyte Esterase,Urine Large (Negative); Mucus,Urine Rare /hpf; Nitrite,Urine Negative (Negative); PH, Urine 5.5 (5.0-8.0); Protein,Urine Negative (Negative); RBC,Urine 11 /hpf (0-5); Specific Gravity,Urine 1.013 (1.001-1.035); Squamous Epithelial Cell,Urine 2 /hpf (0-4); Urobilinogen,Urine <2.0 mg/dL (<2.0); WBC,Urine 4 /hpf (0-5)
[2020-04-28 15:18] VITALS: BP 113/82; PULSE 75; RESP 16
== END 2020-04-28 15:18 | disposition home or self-care (01) ==
LOC: EC 10:24
DX: N83.201 Unspecified ovarian cyst, right side (principal); R55 Syncope and collapse; Z87.891 Personal history of nicotine dependence
CPT/HCPCS: 36415; 71046; 74018; 76830; 80053; 81001; 82378; 84484; 85025; 85610; 85730; 86304; 93005; 96360; 99285

== ENCOUNTER 2020-08-02 06:26 | Emergency (ER) | payer BC ==
[2020-08-02 06:34] VITALS: TEMP 98
[2020-08-02 06:44] LABS: Glucose,Whole Blood 119 mg/dL (75-99)
[2020-08-02] MEDS ORDERED: HYDROmorphone 0.5 MG/0.5 ML SYRINGE IVP STA ×2 (06:47→07:10)
[2020-08-02] MEDS ORDERED: SODIUM CHLORIDE 0.9% 500 ML 500 ML IV STA (06:47)
--- NOTE | 2020-08-02 06:50 | ED ---
General Adult HPI - General Chief complaint: Back Pain/Injury Stated complaint: Back Pain Time Seen by Provider: 08/02/20 06:35 Source: patient, EMS, RN notes reviewed Mode of arrival: EMS Limitations: no limitations - History of Present Illness Initial comments: 59-year-old female with a past medical history of chest pain, neurologic disorder, fibromyalgia, GERD, degenerative disc disease presents to the emergency department for a chief complaint of back and abdominal pain. Patient states that she is a shower when she started to have some back pain. It became severe and started radiating to her abdomen. Patient reports she feels that she is going to pass out. Patient has no other complaints at this time including shortness of breath, chest pain, nausea or vomiting, headache, or visual changes. - Related Data Home Medications Medication Instructions Recorded Confirmed Aspirin/Acetaminophen/Caffeine 1 tab PO BID PRN 04/30/17 04/28/20 [Excedrin Migraine Caplet] Fish Oil/Dha/Epa [Fish Oil 1,200 1 cap PO DAILY 04/30/17 04/28/20 mg Fish Oil] Multivitamins, Thera [Multivitamin 1 tab PO DAILY 04/30/17 04/28/20 (formulary)] Lysine HCl [l-Lysine] 1,000 mg PO DAILY 08/02/19 04/28/20 Previous Rx's Medication Instructions Recorded Ibuprofen [Motrin] 600 mg PO Q8HR PRN #20 tab 04/28/20 traMADol HCL [Ultram] 50 mg PO Q6HR PRN 3 Days #12 tab 04/28/20 Tamsulosin [Flomax] 0.4 mg PO DAILY #20 cap 08/02/20 Allergies Allergy/AdvReac Type Severity Reaction Status Date / Time No Known Allergies Allergy Verified 08/02/20 06:34 Review of Systems ROS Statement: Those systems with pertinent positive or pertinent negative responses have been documented in the HPI. ROS Other: All systems not noted in ROS Statement are negative. Past Medical History Past Medical History: Chest Pain / Angina, Fibromyalgia, GERD/Reflux, Musculoskeletal Disorder, Neurologic Disorder, Supraventricular Tachycardia (SVT) Additional Past Medical History / Comment(s): Hx migraines, arthritis, "broken rt ear drum" - loss of HEARING IN RT EAR, degenerative disc disease, diarrhea since gallbladder removed History of Any Multi-Drug Resistant Organisms: None Reported Past Surgical History: Cardiac Ablation, Cholecystectomy, Ear Surgery, Hernia Repair, Orthopedic Surgery, Tonsillectomy, Tubal Ligation Additional Past Surgical History / Comment(s): rt ear x 2, rt little finger for dislocations, hiatal hernia surg, Colonoscopy, EGD Past Anesthesia/Blood Transfusion Reactions: No Reported Reaction Past Psychological History: No Psychological Hx Reported Smoking Status: Never smoker Past Alcohol Use History: None Reported Past Drug Use History: None Reported - Past Family History Mother Family Medical History: Cancer Sister(s) Family Medical History: Cancer General Exam Limitations: no limitations General appearance: alert, in no apparent distress Head exam: Present: atraumatic Eye exam: Present: normal appearance, PERRL, EOMI. Absent: scleral icterus ENT exam: Present: normal exam, mucous membranes moist Neck exam: Present: normal inspection, full ROM. Absent: tenderness Respiratory exam: Present: normal lung sounds bilaterally. Absent: respiratory distress, wheezes Cardiovascular Exam: Present: regular rate, normal rhythm, normal heart sounds GI/Abdominal exam: Present: soft, normal bowel sounds. Absent: distended, tenderness, guarding, rebound, rigid Course Vital Signs 08/02/20 08/02/20 08/02/20 06:30 07:15 07:27 Temperature 98 F Pulse Rate 78 68 64 Respiratory 20 18 Rate Blood Pressure 99/70 92/58 106/86 O2 Sat by Pulse 96 98 98 Oximetry 08/02/20 08/02/20 07:37 07:48 Temperature Pulse Rate 62 70 Respiratory 16 18 Rate Blood Pressure 93/63 101/74 O2 Sat by Pulse 98 98 Oximetry Medical Decision Making - Medical Decision Making Vitals are stable. Patient's blood pressure was initially borderline low but did improve after fluids. CBC CMP is unremarkable. Given nature of symptoms CT aorta was obtained. This showed no evidence for aortic dissection however there was a 3 mm distal right ureteral calculus with mild obstructive uropathy which is consistent with patient's symptoms. There are several incidental findings including changes to Alexandra fundoplication, gastric thickening, incr easing in size right ovarian lesion as well as pulmonary nodule and diverticulosis. I discussed all these with patient and she will follow up with primary care. Patient will be given a referral to urology for kidney stone which is the cause of patient's pain. If she does not have pain medications at home aside for Motrin according to patient so will be given a starter pack of Tylenol 3. She will follow-up with her doctor. She will return here for any worsening symptoms. I discussed this case with attending Dr. Cee who agrees with this assessment and treatment plan. - Lab Data Result diagrams: 08/02/20 06:49 08/02/20 06:49 Lab Results 08/02/20 08/02/20 08/02/20 Range/Units 06:42 06:49 06:49 WBC 8.3 (3.8-10.6) k/uL RBC 3.89 (3.80-5.40) m/uL Hgb 12.3 (11.4-16.0) gm/dL Hct 35.3 (34.0-46.0) % MCV 90.8 (80.0-100.0) fL MCH 31.6 (25.0-35.0) pg MCHC 34.7 (31.0-37.0) g/dL RDW 12.4 (11.5-15.5) % Plt Count 253 (150-450) k/uL MPV 7.2 Neutrophils % 69 % Lymphocytes % 22 % Monocytes % 5 % Eosinophils % 2 % Basophils % 1 % Neutrophils # 5.7 (1.3-7.7) k/uL Lymphocytes # 1.8 (1.0-4.8) k/uL Monocytes # 0.4 (0-1.0) k/uL Eosinophils # 0.2 (0-0.7) k/uL Basophils # 0.1 (0-0.2) k/uL PT 11.1 (9.0-12.0) sec INR 1.0 (<1.2) APTT 21.7 L (22.0-30.0) sec Sodium (137-145) mmol/L Potassium (3.5-5.1) mmol/L Chloride (98-107) mmol/L Carbon Dioxide (22-30) mmol/L Anion Gap mmol/L BUN (7-17) mg/dL Creatinine (0.52-1.04) mg/dL Est GFR (CKD-EPI)AfAm (>60 ml/min/1.73 sqM) Est GFR (CKD-EPI)NonAf (>60 ml/min/1.73 sqM) Glucose (74-99) mg/dL POC Glucose (mg/dL) 119 H (75-99) mg/dL POC Glu Rug Measurer ID Darryn Laboy Calcium (8.4-10.2) mg/dL Total Bilirubin (0.2-1.3) mg/dL AST (14-36) U/L ALT (4-34) U/L Alkaline Phosphatase (38-126) U/L Total Protein (6.3-8.2) g/dL Albumin (3.5-5.0) g/dL 08/02/20 Range/Units 06:49 WBC (3.8-10.6) k/uL RBC (3.80-5.40) m/uL Hgb (11.4-16.0) gm/dL Hct (34.0-46.0) % MCV (80.0-100.0) fL MCH (25.0-35.0) pg MCHC (31.0-37.0) g/dL RDW (11.5-15.5) % Plt Count (150-450) k/uL MPV Neutrophils % % Lymphocytes % % Monocytes % % Eosinophils % % Basophils % % Neutrophils # (1.3-7.7) k/uL Lymphocytes # (1.0-4.8) k/uL Monocytes # (0-1.0) k/uL Eosinophils # (0-0.7) k/uL Basophils # (0-0.2) k/uL PT (9.0-12.0) sec INR (<1.2) APTT (22.0-30.0) sec Sodium 136 L (137-145) mmol/L Potassium 3.8 (3.5-5.1) mmol/L Chloride 109 H (98-107) mmol/L Carbon Dioxide 22 (22-30) mmol/L Anion Gap 5 mmol/L BUN 20 H (7-17) mg/dL Creatinine 0.60 (0.52-1.04) mg/dL Est GFR (CKD-EPI)AfAm >90 (>60 ml/min/1.73 sqM) Est GFR (CKD-EPI)NonAf >90 (>60 ml/min/1.73 sqM) Glucose 143 H (74-99) mg/dL POC Glucose (mg/dL) (75-99) mg/dL POC Glu Rug Measurer ID Calcium 8.4 (8.4-10.2) mg/dL Total Bilirubin 0.4 (0.2-1.3) mg/dL AST 25 (14-36) U/L ALT 21 (4-34) U/L Alkaline Phosphatase 67 (38-126) U/L Total Protein 5.7 L (6.3-8.2) g/dL Albumin 3.2 L (3.5-5.0) g/dL Disposition Clinical Impression: Kidney stone Disposition: HOME SELF-CARE Condition: Good Instructions (If sedation given, give patient instructions): Kidney Stones (ED) Additional Instructions: Please take Motrin for pain. If pain is severe take Tylenol 3. Do not drive or operate machinery while taking this. Take Flomax as directed follow up with urology. Return to the emergency room for any worsening symptoms. Prescriptions: Tamsulosin [Flomax] 0.4 mg PO DAILY #20 cap Is patient prescribed a controlled substance at d/c from ED?: No Referrals: Eyal Dupree MD [Primary Care Provider] - 1-2 days Parker Roberts MD [STAFF PHYSICIAN] - 1-2 days Time of Disposition: 08:35
[2020-08-02] MEDS ORDERED: SODIUM CHLORIDE 0.9% 1,000 ML IV STA (07:10)
[2020-08-02 07:17] LABS: Basophils # (A) 0.1 k/uL (0-0.2); Basophils % (A) 1 %; Eosinophils # (A) 0.2 k/uL (0-0.7); Eosinophils % (A) 2 %; HCT 35.3 % (34.0-46.0); HGB 12.3 gm/dL (11.4-16.0); Lymphocytes # (A) 1.8 k/uL (1.0-4.8); Lymphocytes % (A) 22 %; MCH 31.6 pg (25.0-35.0); MCHC 34.7 g/dL (31.0-37.0); MCV 90.8 fL (80.0-100.0); Mean Platelet Volume 7.2; Monocytes # (A) 0.4 k/uL (0-1.0); Monocytes % (A) 5 %; Neutrophils # (A) 5.7 k/uL (1.3-7.7); Neutrophils % (A) 69 %; Platelet Count 253 k/uL (150-450); RBC 3.89 m/uL (3.80-5.40); RDW 12.4 % (11.5-15.5); WBC 8.3 k/uL (3.8-10.6)
[2020-08-02 07:26] LABS: ALT 21 U/L (4-34); AST 25 U/L (14-36); African American GFR (CKD) >90 (>60 ml/min/1.73 sqM); Albumin 3.2 g/dL (3.5-5.0); Alkaline Phosphatase 67 U/L (38-126); Anion Gap 5 mmol/L; Blood Urea Nitrogen 20 mg/dL (7-17); Calcium 8.4 mg/dL (8.4-10.2); Carbon Dioxide 22 mmol/L (22-30); Chloride 109 mmol/L (98-107); Glucose 143 mg/dL (74-99); Non-African American GFR(CKD) >90 (>60 ml/min/1.73 sqM); Potassium 3.8 mmol/L (3.5-5.1); Sodium 136 mmol/L (137-145); Total Bilirubin 0.4 mg/dL (0.2-1.3); Total Protein 5.7 g/dL (6.3-8.2)
[2020-08-02 07:41] LABS: Prothrombin Time 11.1 sec (9.0-12.0)
--- NOTE | 2020-08-02 07:44 | CT ---
EXAMINATION TYPE: CT angio thor/abd pel aorta DATE OF EXAM: 08/02/2020 COMPARISON: Abdomen and pelvis 09/13/2019 HISTORY: 59-year-old female with back and abdominal pain, hypotension TECHNIQUE: Contiguous axial scanning of the chest, abdomen, and pelvis performed without and with IV Contrast, patient injected with 100 mL of Isovue 370. Coronal/sagittal MIP reconstructions performed. 3-D reconstructions generated on a dedicated independent workstation. CT DLP: 1640.1 mGycm Automated exposure control for dose reduction was used. FINDINGS: CHEST: Heart normal size without pericardial effusion. No flattening of the interventricular septum. However , there is reflux of contrast into the hepatic veins noted. Borderline enlarged precarinal lymph node at 1.1 cm. Prominent hilar lymph nodes measuring up to 9 mm . These are probably reactive/post inflammatory. Mild diffuse bronchial wall thickening may reflect bronchitis or chronic asthma. Motion artifacts are noted. 6 mm peripheral left lower lobe pulmonary nodule, unchanged from 09/13/2019 suggesting a benig n etiology. An additional one-year follow-up could be considered. No consolidation or pleural effusio n. VASCULATURE: Initial noncontrast images show no evidence for acute intramural hematoma. Aortic root normal caliber at 3.2 cm. Ascending aorta normal caliber 3.1 cm. Conventional arch vessel branching anatomy with mild atherosclerotic arch calcifications. Upper descending thoracic aorta normal caliber 2.8 cm. The mid and lower descending thoracic aorta are also normal caliber. No evidence for aortic dissection. The celiac axis and SMA as well as the renal arteries are patent. There is an accessory right renal artery noted. Depo-ip-vkmvoalm prostatic calcifications infrarenal abdominal aorta and common iliac arteries withou t aneurysm. RAHDA is patent. ABDOMEN: There appear to be post surgical changes of Tasha fundoplication but with a small to moderate size r ecurrent hiatal hernia suggested, slightly larger in appearance as compared to 09/13/2019. Liver borderline in size at 17.5 cm. Gallbladder surgically absent. Adrenal glands, left kidney, mottled arterial phase enhancement of the spleen, and pancreas show no g ross abnormality. There is mild right-sided hydronephrosis and mild right hydroureter with a 3 mm calculus at the dista l right ureter. No dilated small bowel, free fluid, or free air. Questionable mural based thickening along the inferi or greater curvature of the gastric body, referred axial image 77, coronal series 503 image 17. No mesenteric or retroperitoneal lymphadenopathy. Normal appendix. Mild stool burden. Mid sigmoid diverticulosis without pericolonic inflammatory garcia e. PELVIS: Bladder nondistended. Uterus anteverted. Normal left ovary. Pelvic phleboliths. Redemonstrated cystic right ovarian mass measuring 5.6 x 4.1 cm versus 4.7 cm on 09/13/2019. Otherwise, no abnormal fluid c ollection in the pelvis or pelvic lymphadenopathy. BONES: Mild degenerative change of the hips. Hypertrophic facet arthropathy lower lumbar spine. No osseous d estructive process. IMPRESSION: 1. NO EVIDENCE FOR AORTIC DISSECTION OR ANEURYSM. 2. EXAM POSITIVE FOR A 3 MM DISTAL RIGHT URETERAL CALCULUS WITH MILD OBSTRUCTIVE UROPATHY. 3. THERE APPEAR TO BE POSTSURGICAL CHANGES OF PRIOR TASHA FUNDOPLICATION BUT WITH A SMALL TO MODERAT E-SIZED RECURRENT HIATAL HERNIA LOCATED ABOVE THE WRAP, SLIGHTLY LARGER IN APPEARANCE COMPARED TO 09/13/2019. CONSIDER REFERRAL BACK TO THE PATIENT'S SURGEON IF SYMPTOMATIC. 4. QUESTIONABLE FOCAL MURAL BASED THICKENING ALONG THE GREATER CURVATURE OF THE GASTRIC BODY. CORRELA TE FOR ANY SYMPTOMS OF GASTRITIS. DIRECT VISUALIZATION CAN BE CONSIDERED. 5. CYSTIC RIGHT OVARIAN LESION CURRENTLY MEASURES 5.6 CM VERSUS 4.7 CM ON 09/13/2019. A CYSTIC EPITHEL IAL OVARIAN NEOPLASM IS NOT EXCLUDED GIVEN THE INCREASING SIZE. RECOMMEND OUTPATIENT REFERRAL TO [facility] FOR FURTHER SURVEILLANCE/MANAGEMENT. 6. AN ADDITIONAL ONE-YEAR FOLLOW-UP OF THE PATIENT'S 6 MM LEFT LOWER LOBE PULMONARY NODULE, STABLE FO R JUST UNDER A YEAR. 7. MID SIGMOID DIVERTICULOSIS WITHOUT ACUTE DIVERTICULITIS.
[2020-08-02 07:49] VITALS: RESP 18
[2020-08-02 07:55] LABS: Partial Thromboplastin Time 21.7 sec (22.0-30.0)
[2020-08-02] MEDS ORDERED: diphenhydrAMINE 50 MG/ML 1 ML VIAL IVP STA (08:33)
[2020-08-02] MEDS ORDERED: METOCLOPRAMIDE 5 MG/ML 2 ML VIAL IVP STA (08:33)
[2020-08-02 08:34] VITALS: BP 110/76; PULSE 64
[2020-08-02] MEDS ORDERED: ACET/COD 300 MG/30 MG STARTER PACK 6 TAB BTL PO STA (08:35)
[2020-08-02 09:07] LABS: Appearance,Urine Clear (Clear); Bilirubin,Urine Negative (Negative); Blood,Urine Large (Negative); Color,Urine Yellow; Glucose,Urine (UA) Negative (Negative); Ketones,Urine Negative (Negative); Leukocyte Esterase,Urine Negative (Negative); Mucus,Urine Rare /hpf; Nitrite,Urine Negative (Negative); PH, Urine 6.5 (5.0-8.0); Protein,Urine Trace (Negative); RBC,Urine >182 /hpf (0-5); Squamous Epithelial Cell,Urine <1 /hpf (0-4); Urobilinogen,Urine <2.0 mg/dL (<2.0); WBC,Urine 1 /hpf (0-5)
[2020-08-02 09:08] LABS: Specific Gravity,Urine >1.050 (1.001-1.035)
== END 2020-08-02 09:28 | disposition home or self-care (01) ==
LOC: EC 06:26
DX: N13.9 Obstructive and reflux uropathy, unspecified (principal); N20.2 Calculus of kidney with calculus of ureter; R91.1 Solitary pulmonary nodule; K57.30 Diverticulosis of large intestine without perforation or abscess without bleeding; N83.8 Other noninflammatory disorders of ovary, fallopian tube and broad ligament; I25.2 Old myocardial infarction; Z87.39 Personal history of other diseases of the musculoskeletal system and connective tissue; Z98.890 Other specified postprocedural states
CPT/HCPCS: 99284; 96374; 96375 ×2; 96361; 36415; 93005; 80053; 85025; 85610; 85730; 81001; 71275; 74174; J1200; J2765; J1170; Q9967

== ENCOUNTER 2020-08-03 19:34 | Emergency (ER) | payer BC ==
[2020-08-03] MEDS ORDERED: SODIUM CHLORIDE 0.9% 1,000 ML IV STA (19:44)
[2020-08-03] MEDS ORDERED: KETOROLAC 15 MG/ML 1 ML VIAL IVP STA (19:44)
[2020-08-03 20:04] LABS: Basophils # (A) 0.1 k/uL (0-0.2); Basophils % (A) 1 %; Eosinophils # (A) 0.2 k/uL (0-0.7); Eosinophils % (A) 2 %; HCT 36.4 % (34.0-46.0); HGB 12.4 gm/dL (11.4-16.0); Lymphocytes # (A) 2.3 k/uL (1.0-4.8); Lymphocytes % (A) 22 %; MCH 30.6 pg (25.0-35.0); MCV 90.2 fL (80.0-100.0); Mean Platelet Volume 7.2; Monocytes # (A) 0.6 k/uL (0-1.0); Monocytes % (A) 6 %; Neutrophils # (A) 6.8 k/uL (1.3-7.7); Neutrophils % (A) 67 %; Platelet Count 251 k/uL (150-450); RBC 4.03 m/uL (3.80-5.40); RDW 13.1 % (11.5-15.5); WBC 10.2 k/uL (3.8-10.6)
[2020-08-03 20:13] LABS: ALT 25 U/L (4-34); AST 29 U/L (14-36); African American GFR (CKD) >90 (>60 ml/min/1.73 sqM); Albumin 3.8 g/dL (3.5-5.0); Alkaline Phosphatase 68 U/L (38-126); Anion Gap 7 mmol/L; Blood Urea Nitrogen 21 mg/dL (7-17); Calcium 8.9 mg/dL (8.4-10.2); Carbon Dioxide 23 mmol/L (22-30); Chloride 110 mmol/L (98-107); Glucose 121 mg/dL (74-99); Non-African American GFR(CKD) 82 (>60 ml/min/1.73 sqM); Potassium 4.1 mmol/L (3.5-5.1); Sodium 140 mmol/L (137-145); Total Bilirubin 0.4 mg/dL (0.2-1.3); Total Protein 6.6 g/dL (6.3-8.2)
--- NOTE | 2020-08-03 20:15 | ED ---
Abdominal Pain HPI - General Chief Complaint: Abdominal Pain Stated Complaint: Kidney stones Time Seen by Provider: 08/03/20 19:38 Source: patient, EMS Mode of arrival: EMS Limitations: no limitations - History of Present Illness Initial Comments: 59-year-old male presents to emergency Department with a chief complaint of a kidney stone. Patient states she was evaluated emergency department yesterday and was diagnosed with a kidney stone on the right side. patient reports the pain is still sharp and a 9/10. Patient states she was discharged with Tylenol 3 which is not helping alleviate the symptoms. Patient reports the pain is still persistent on the right flank region and is now radiating to the groin. States she has been drinking plenty of fluids but not urinating as much.however, she is denying any obstructive or infectious urinary symptoms. She does report nausea but no vomiting. Denies any chest pain shortness of breath. - Related Data Home Medications Medication Instructions Recorded Confirmed Aspirin/Acetaminophen/Caffeine 1 tab PO BID PRN 04/30/17 08/02/20 [Excedrin Migraine Caplet] Fish Oil/Dha/Epa [Fish Oil 1,200 1 cap PO DAILY 04/30/17 08/02/20 mg Fish Oil] Multivitamins, Thera [Multivitamin 1 tab PO DAILY 04/30/17 08/02/20 (formulary)] Lysine HCl [l-Lysine] 1,000 mg PO DAILY 08/02/19 08/02/20 Butalb/APAP/Caff 50-325-40Mg 1 tab PO TID PRN 08/02/20 08/02/20 [Fioricet 50-325-40] Hyoscyamine Sulfate [Levsin] 0.125 mg PO TID PRN 08/02/20 08/02/20 Ibuprofen [Motrin] 400 mg PO BID PRN 08/02/20 08/02/20 SUMAtriptan SUCCINATE [Imitrex] 100 mg PO BID PRN 08/02/20 08/02/20 Topiramate [Topamax] 50 mg PO HS 08/02/20 08/02/20 Previous Rx's Medication Instructions Recorded Tamsulosin [Flomax] 0.4 mg PO DAILY #20 cap 08/02/20 HYDROcodone/APAP 5-325MG [Hephzibah 1 tab PO Q6HR PRN 3 Days #12 tab 08/03/20 5-325] Phenazopyridine [Pyridium] 200 mg PO TID #6 tablet 08/03/20 Allergies Allergy/AdvReac Type Severity Reaction Status Date / Time No Known Allergies Allergy Verified 08/02/20 08:43 Review of Systems ROS Statement: Those systems with pertinent positive or pertinent negative responses have been documented in the HPI. ROS Other: All systems not noted in ROS Statement are negative. Past Medical History Past Medical History: Chest Pain / Angina, Fibromyalgia, GERD/Reflux, Musculoskeletal Disorder, Neurologic Disorder, Supraventricular Tachycardia (SVT) Additional Past Medical History / Comment(s): Hx migraines, arthritis, "broken rt ear drum" - loss of HEARING IN RT EAR, degenerative disc disease, diarrhea since gallbladder removed History of Any Multi-Drug Resistant Organisms: None Reported Past Surgical History: Cardiac Ablation, Cholecystectomy, Ear Surgery, Hernia Repair, Orthopedic Surgery, Tonsillectomy, Tubal Ligation Additional Past Surgical History / Comment(s): rt ear x 2, rt little finger for dislocations, hiatal hernia surg, Colonoscopy, EGD Past Anesthesia/Blood Transfusion Reactions: No Reported Reaction Past Psychological History: Anxiety Smoking Status: Former smoker Past Alcohol Use History: None Reported Past Drug Use History: None Reported - Past Family History Mother Family Medical History: Cancer Sister(s) Family Medical History: Cancer General Exam Limitations: no limitations Course Vital Signs 08/03/20 19:37 Temperature 97.5 F L Pulse Rate 61 Respiratory 16 Rate Blood Pressure 135/96 O2 Sat by Pulse 97 Oximetry - Reevaluation(s) Reevaluation #1: 08/03/20 21:10 medical records reviewed Medical Decision Making - Medical Decision Making 59-year-old female presents to emergency Department with chief complaint of abdominal pain. On physical examination, patient does appear to be in moderate to severe pain area patient was initially given IV fluids, antiemetics and Toradol.CBC unremarkable. appears CMP reveals mild elevation and BUN of 21. UA shows no signs of urinary tract infection. There is only trace amounts of blood. CT thoracic and abdominal aorta with contrast was obtained yesterday which showed a 3 mm right-sided stone with mild hydronephrosis. post void residual volume is 95, likely secondary to bladder spasms. Patient will be discharged with Hephzibah. Narcotic form signed and discussed. She'll also be given Pyridium. She was advised to follow-up with a urologist. Strict return parameters were thoroughly discussed the patient was understanding and agreeable. Case discussed with Dr. Quintanilla. - Lab Data Result diagrams: 08/03/20 19:59 08/03/20 19:59 Lab Results 08/03/20 08/03/20 08/03/20 Range/Units 19:59 19:59 20:14 WBC 10.2 (3.8-10.6) k/uL RBC 4.03 (3.80-5.40) m/uL Hgb 12.4 (11.4-16.0) gm/dL Hct 36.4 (34.0-46.0) % MCV 90.2 (80.0-100.0) fL MCH 30.6 (25.0-35.0) pg MCHC 34.0 (31.0-37.0) g/dL RDW 13.1 (11.5-15.5) % Plt Count 251 (150-450) k/uL MPV 7.2 Neutrophils % 67 % Lymphocytes % 22 % Monocytes % 6 % Eosinophils % 2 % Basophils % 1 % Neutrophils # 6.8 (1.3-7.7) k/uL Lymphocytes # 2.3 (1.0-4.8) k/uL Monocytes # 0.6 (0-1.0) k/uL Eosinophils # 0.2 (0-0.7) k/uL Basophils # 0.1 (0-0.2) k/uL Sodium 140 (137-145) mmol/L Potassium 4.1 (3.5-5.1) mmol/L Chloride 110 H (98-107) mmol/L Carbon Dioxide 23 (22-30) mmol/L Anion Gap 7 mmol/L BUN 21 H (7-17) mg/dL Creatinine 0.80 (0.52-1.04) mg/dL Est GFR (CKD-EPI)AfAm >90 (>60 ml/min/1.73 sqM) Est GFR (CKD-EPI)NonAf 82 (>60 ml/min/1.73 sqM) Glucose 121 H (74-99) mg/dL Calcium 8.9 (8.4-10.2) mg/dL Total Bilirubin 0.4 (0.2-1.3) mg/dL AST 29 (14-36) U/L ALT 25 (4-34) U/L Alkaline Phosphatase 68 (38-126) U/L Total Protein 6.6 (6.3-8.2) g/dL Albumin 3.8 (3.5-5.0) g/dL Urine Color Yellow Urine Appearance Clear (Clear) Urine pH 5.5 (5.0-8.0) Ur Specific Hyde 1.036 H (1.001-1.035) Urine Protein Negative (Negative) Urine Glucose (UA) Negative (Negative) Urine Ketones Negative (Negative) Urine Blood Small H (Negative) Urine Nitrite Negative (Negative) Urine Bilirubin Negative (Negative) Urine Urobilinogen <2.0 (<2.0) mg/dL Ur Leukocyte Esterase Negative (Negative) Urine RBC 3 (0-5) /hpf Urine WBC <1 (0-5) /hpf Ur Squamous Epith Cells 1 (0-4) /hpf Calcium Oxalate Crystal Occasional H (None) /hpf Urine Mucus Occasional H (None) /hpf Disposition Clinical Impression: Right flank pain, Kidney stone Disposition: HOME SELF-CARE Condition: Stable Instructions (If sedation given, give patient instructions): Kidney Stones (ED) Additional Instructions: Take prescribed medication as directed. Follow-up with a urologist. Return to emergency department if symptoms worsen. Prescriptions: HYDROcodone/APAP 5-325MG [Hephzibah 5-325] 1 tab PO Q6HR PRN 3 Days #12 tab PRN Reason: Pain Is patient prescribed a controlled substance at d/c from ED?: No Referrals: Eyal Dupree MD [Primary Care Provider] - 1-2 days Time of Disposition: 21:13
[2020-08-03 20:36] LABS: Appearance,Urine Clear (Clear); Bilirubin,Urine Negative (Negative); Blood,Urine Small (Negative); Calcium Oxalate Crystals,Urine Occasional /hpf; Color,Urine Yellow; Glucose,Urine (UA) Negative (Negative); Ketones,Urine Negative (Negative); Leukocyte Esterase,Urine Negative (Negative); Mucus,Urine Occasional /hpf; Nitrite,Urine Negative (Negative); PH, Urine 5.5 (5.0-8.0); Protein,Urine Negative (Negative); RBC,Urine 3 /hpf (0-5); Specific Gravity,Urine 1.036 (1.001-1.035); Squamous Epithelial Cell,Urine 1 /hpf (0-4); Urobilinogen,Urine <2.0 mg/dL (<2.0); WBC,Urine <1 /hpf (0-5)
[2020-08-03] MEDS ORDERED: HYDROmorphone 0.5 MG/0.5 ML SYRINGE IVP STA (20:37)
[2020-08-03] MEDS ORDERED: ONDANSETRON 4 MG/2 ML VIAL IVP STA (20:38)
[2020-08-03] MEDS ORDERED: HYDROcodone/APAP 5-325MG 1 EACH TAB PO STA (21:42)
[2020-08-03 22:02] VITALS: BP 104/57; PULSE 82; RESP 18; TEMP 97.7
== END 2020-08-03 22:02 | disposition home or self-care (01) ==
LOC: EC 19:34
DX: N13.2 Hydronephrosis with renal and ureteral calculous obstruction (principal); I20.9 Angina pectoris, unspecified; Z79.82 Long term (current) use of aspirin; Z90.49 Acquired absence of other specified parts of digestive tract; Z87.891 Personal history of nicotine dependence; Z86.69 Personal history of other diseases of the nervous system and sense organs
CPT/HCPCS: 36415; 80053; 85025; 81001; 99284; 96374; 96375 ×2; 96361 ×2; J2405; J1885; J1170

== ENCOUNTER 2020-08-08 09:06 | Day surgery (SDC) | payer BC ==
[2020-08-06 14:41] VITALS: BMI 31.1
--- NOTE | 2020-08-07 17:30 | P.HPIHPCON ---
History of Present Illness Ms Bustillo is a 59 yo female with hx of 3mm right distal ureteral stone. She had two ED presentation secondary to her kidney stone. On evaluation in clinic patient is still symptomatic secondary to her stone. I discussed with her given her ongoing symptoms we can proceed with right sided ureteroscopy with holmium laser, Discussed risk which includes but not limited to bleeding, infection and injury to the ureter. She understood all risk and agreed to proceed with right sided ureteroscopy with holmium laser, stone basketting and possible stent placement Consent for Procedure: I have explained the operation/procedure to the patient, including the risks, benefits, side effects, alternative therapies (including not receiving the proposed treatment or service), the likelihood of the patient achieving his/her goals, and potential recuperation problems for the procedure/sedation/analgesia, as well as any blood products, if indicated. I also explained to the patient the risks, benefits and side effects of the alternatives, as well as the risks related to not receiving the proposed procedure, care, treatment, or services. Past Medical History Past Medical History: Chest Pain / Angina, Fibromyalgia, GERD/Reflux, Hearing Disorder / Deafness, Musculoskeletal Disorder, Neurologic Disorder, Supraventricular Tachycardia (SVT) Additional Past Medical History / Comment(s): Hx migraines, "broken rt ear drum" - loss of HEARING IN RT EAR, degenerative disc disease, diarrhea on and off since gallbladder removed. History of Any Multi-Drug Resistant Organisms: None Reported Past Surgical History: Cardiac Ablation, Cholecystectomy, Ear Surgery, Hernia Repair, Orthopedic Surgery, Tonsillectomy, Tubal Ligation Additional Past Surgical History / Comment(s): Right ear surgery X2, right little finger surgery for dislocations, hiatal hernia repair, Colonoscopy, EGD. Past Anesthesia/Blood Transfusion Reactions: No Reported Reaction Past Psychological History: Anxiety Smoking Status: Former smoker Past Alcohol Use History: None Reported Additional Past Alcohol Use History / Comment(s): Quit smoking 2017, started at age 17, 1 PPD. Past Drug Use History: None Reported - Past Family History Mother Family Medical History: Cancer Sister(s) Family Medical History: Cancer Medications and Allergies Home Medications Medication Instructions Recorded Confirmed Type Fish Oil/Dha/Epa [Fish Oil 1,200 1 cap PO DAILY 04/30/17 08/06/20 History mg Fish Oil] Multivitamins, Thera [Multivitamin 1 tab PO DAILY 04/30/17 08/06/20 History (formulary)] Lysine HCl [l-Lysine] 1,000 mg PO DAILY 08/02/19 08/06/20 History Butalb/APAP/Caff 50-325-40Mg 1 tab PO TID PRN 08/02/20 08/06/20 History [Fioricet 50-325-40] Ibuprofen [Motrin] 400 mg PO BID PRN 08/02/20 08/06/20 History Tamsulosin [Flomax] 0.4 mg PO DAILY #20 cap 08/02/20 08/06/20 Rx Phenazopyridine [Pyridium] 200 mg PO TID #6 tablet 08/03/20 08/06/20 Rx Cephalexin [Keflex] 500 mg PO TID 08/06/20 08/06/20 History Allergies Allergy/AdvReac Type Severity Reaction Status Date / Time No Known Allergies Allergy Verified 08/06/20 14:25 Surgical - Exam - General well developed, well nourished, moderate distress, moderate pain - Eyes PERRL, normal ocular movement - Respiratory normal expansion, normal respiratory effort Assessment and Plan Assessment: 59 yo female with hx of 3mm right sided distal stone OR for right sided ureteroscopy with holmium laser, stone basketting and possible stent placement
[~2020-08-08 09:06] MED LIST changes: +DEXAMETHASONE SOD PHOSPHATE 4 MG/ML 1 ML VIAL IV ONE; +LIDOCAINE 1% (10MG/ML) FOR IV START INTRADERMA PRN; -LIDOCAINE 1% 20 ML VIAL (10MG/ML) FOR IV START INTRADERMA PRN; -LIDOCAINE 1% INJ 10MG/ML (20 ML MDV) ONE; -PROPOFOL 10 MG/ML 20 ML VIAL IV ONE
--- NOTE | 2020-08-08 09:25 | XR ---
EXAMINATION TYPE: XR KUB DATE OF EXAM: 08/08/2020 Comparison: 04/28/2020 Clinical History: 59-year-old female Right Renal Calculi Findings: Nonobstructive bowel gas pattern. Mild stool burden. No definite suspicious calcification seen. Tiny 3 mm distal right ureteral calculus seen on recent CT is not well demonstrated radiographically. IMPRESSION: No suspicious calcifications is identified. The tiny 3 mm distal right ureteral calculus seen on rece nt CT is not well seen radiographically.
[2020-08-08] MEDS: HYDROmorphone 0.5 MG/0.5 ML SYRINGE IVP PRN ×3 (09:58→12:45)
[2020-08-08] MEDS ORDERED: PROPOFOL 10 MG/ML 20 ML VIAL IV ONE (11:04)
[2020-08-08] MEDS ORDERED: SUCCINYLCHOLINE CHLORIDE 100 MG/5 ML SYR IV ONE (11:04)
[2020-08-08] MEDS ORDERED: MIDAZOLAM 2 MG/2 ML VIAL ONE (11:04)
[2020-08-08] MEDS ORDERED: LIDOCAINE 1% INJ 10MG/ML (20 ML MDV) ONE (11:04)
[2020-08-08] MEDS ORDERED: fentaNYL (PF) 50 MCG/ML 2 ML AMP ONE (11:04)
[2020-08-08 11:59] VITALS: TEMP 98.3
--- NOTE | 2020-08-08 12:37 | FL ---
Fluoroscopy HISTORY: Renal calculi 1 seconds fluoroscopy time supplied to the referring clinician. 2 intraoperative C-arm images docume nt the procedure. See dictated report from urology.
[2020-08-08] MEDS ORDERED: KETOROLAC 15 MG/ML 1 ML VIAL IVP ONE (12:47)
[2020-08-08 13:20] VITALS: RESP 18
[2020-08-08 13:49] VITALS: BP 137/71; PULSE 72
--- NOTE | 2020-08-12 14:15 | P.OP ---
Date of Procedure: 08/08/20 Preoperative Diagnosis: Right ureteral calculi Postoperative Diagnosis: Right renal calculi Procedure(s) Performed: Cystoscopy, right ureteroscopy, holmium laser lithotripsy Implants: None Anesthesia: JARREDA Surgeon: Parker Roberts Estimated Blood Loss (ml): 1 Pathology: none sent Condition: stable Disposition: PACU Indications for Procedure: Ms Bustillo is a 59 yo female with hx of 3mm right distal ureteral stone. She had two ED presentation secondary to her kidney stone. On evaluation in clinic patient is still symptomatic secondary to her stone. I discussed with her given her ongoing symptoms we can proceed with right sided ureteroscopy with holmium laser, Discussed risk which includes but not limited to bleeding, infection and injury to the ureter. She understood all risk and agreed to proceed with right sided ureteroscopy with holmium laser, stone basketting and possible stent placement Operative Findings: No stones within the distal ureter, complete ureteroscopy showed no evidence of stone along the course a ureter, renoscopy also showed no evidence of stone. Multiple small renal calculi in the mid and the lower calyx Description of Procedure: Patient brought to the operating room, general anesthesia was induced. She was prepped and draped in sterile fashion a placed in dorsal lithotomy position. A cystoscopy fitted with a 21-Kinyarwanda sheath was inserted per urethra, cystoscopy was performed showed no abnormality within the bladder. Attention was then carried to the right ureteral orifice, the cystoscope was withdrawn and a semirigid ureteroscope was inserted and advanced up the right ureteral orifice, scope was advanced all the way up to the mid ureter without any evidence of stones. A was not able to advance the scope past the area due to tortuosity of the ureter. Pullback ureteroscopy showed no evidence of stone, or injury to ureter. At this time a sensor wire was advanced through the ureteroscope and the ureteroscope was withdrawn with the wire in place. A flexible ureteroscope was passed over the wire under fluoroscopy, complete ureteroscopy showed no evidence of ureteral stone, the scope was then advanced to the kidney and renoscopy was performed which showed multiple small stones stuck to the parenchyma in the lower in the mid calyx. Using the holmium laser the most stones were dusted. Repeat renoscopy showed no evidence of stones or injury to the kidney. Pullback ureteroscopy was performed which showed no injury to the ureter or any evidence of ureteral stone. The bladder was emptied and the case. The patient tolerated the procedure well was taken to PACU in stable condition
== END 2020-08-08 14:18 | disposition home or self-care (01) ==
LOC: OR 09:06
PROVIDERS: ATTEND Urology
DX: N20.0 Calculus of kidney (principal); M79.7 Fibromyalgia; K21.9 Gastro-esophageal reflux disease without esophagitis; I47.1 Supraventricular tachycardia; G43.909 Migraine, unspecified, not intractable, without status migrainosus; H72.91 Unspecified perforation of tympanic membrane, right ear; H91.8X1 Other specified hearing loss, right ear; R19.7 Diarrhea, unspecified; Z90.49 Acquired absence of other specified parts of digestive tract; Z98.51 Tubal ligation status; Z98.890 Other specified postprocedural states; Z90.89 Acquired absence of other organs; F41.9 Anxiety disorder, unspecified; Z87.891 Personal history of nicotine dependence; Z80.9 Family history of malignant neoplasm, unspecified; Z79.899 Other long term (current) drug therapy; Z79.891 Long term (current) use of opiate analgesic
CPT/HCPCS: 74018

== ENCOUNTER → 2020-08-16 | Outpatient (CLI) | payer BC ==
--- NOTE | 2020-08-16 11:20 | FL ---
EXAMINATION TYPE: FL UGI air wo esophagus wo KUB DATE OF EXAM: 08/16/2020 COMPARISON: Correlation CT 08/02/2020 HISTORY: 59-year-old female K21.9, GERD. Patient with prior Alexandra fundoplication and 2019. TECHNIQUE: A double contrast UGI study is performed. Total fluoroscopy time: 2 minutes 3 seconds. Total images: 44 FINDINGS: Esophagus shows normal course and caliber. Mild tertiary peristaltic contractions suggest age-related change. No mucosal lesion, suspicious filling defect, or fixed narrowing is seen. There are postsurgical changes of Alexandra fundoplication but with a recurrent small hiatal hernia loca thien above the Alexandra wrap. The Alexandra wrap remains below the diaphragm. Slightly limited assessment of the stomach due to prompt emptying and limited coating. The stomach sh ows normal distensibility. No gross fold thickening, suspicious filling defect, or discrete ulcer. Gastroesophageal reflux could not be elicited during the course of the study. The duodenal bulb, sweep, and proximal small bowel loops are unremarkable. IMPRESSION: 1. Intact Alexandra wrap but with a recurrent small hiatal hernia located above the wrap. 2. Mild esophageal dysmotility, likely age related change. 3. Otherwise, unremarkable upper GI exam.
== END | disposition home or self-care (01) ==
LOC: RADFLMAIN 07:45
PROVIDERS: ATTEND Surgery
DX: K22.4 Dyskinesia of esophagus (principal); K44.9 Diaphragmatic hernia without obstruction or gangrene
CPT/HCPCS: 74246

== ENCOUNTER 2020-08-20 11:35 | Day surgery (SDC) | payer BC ==
[2020-08-15 12:11] VITALS: BMI 31.1
[~2020-08-20 11:35] MED LIST changes: -DEXAMETHASONE SOD PHOSPHATE 4 MG/ML 1 ML VIAL IV ONE
[2020-08-20] MEDS ORDERED: LACTATED RINGERS 1,000 ML IV ONE (11:55)
[2020-08-20 12:08] VITALS: TEMP 97.8
[2020-08-20] MEDS ORDERED: LIDOCAINE 1% INJ 10MG/ML (20 ML MDV) ONE (13:07)
[2020-08-20] MEDS ORDERED: PROPOFOL 10 MG/ML 20 ML VIAL IV ONE (13:07)
[2020-08-20 13:27] VITALS: RESP 16
[2020-08-20 13:40] VITALS: BP 112/76; PULSE 67
--- NOTE | 2020-08-20 14:34 | P.GSHP ---
History of Present Illness H&P Date: 08/20/20 Chief Complaint: GERD This a 60-year-old female has complaints of GERD epigastric abdominal pain. She presents today for EGD. 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 LITHOTRIPSY Past Anesthesia/Blood Transfusion Reactions: No Reported Reaction Smoking Status: Former smoker - Past Family History Mother Family Medical History: Cancer Sister(s) Family Medical History: Cancer Medications and Allergies Home Medications Medication Instructions Recorded Confirmed Type Fish Oil/Dha/Epa [Fish Oil 1,200 1 cap PO DAILY 04/30/17 08/15/20 History mg Fish Oil] Multivitamins, Thera [Multivitamin 1 tab PO DAILY 04/30/17 08/15/20 History (formulary)] Lysine HCl [l-Lysine] 1,000 mg PO DAILY 08/02/19 08/15/20 History Butalb/APAP/Caff 50-325-40Mg 1 tab PO TID PRN 08/02/20 08/15/20 History [Fioricet 50-325-40] Ibuprofen [Motrin] 400 mg PO BID PRN 08/02/20 08/15/20 History Tamsulosin [Flomax] 0.4 mg PO DAILY #20 cap 08/02/20 08/15/20 Rx Omeprazole 40 mg PO DAILY #90 capsule. 08/20/20 Rx Allergies Allergy/AdvReac Type Severity Reaction Status Date / Time No Known Allergies Allergy Verified 08/15/20 12:04 Surgical - Exam Vital Signs Temp Pulse Resp BP Pulse Ox 97.8 F 67 18 130/72 98 08/20/20 11:54 08/20/20 11:54 08/20/20 11:54 08/20/20 11:54 08/20/20 11:54 - General well developed, well nourished, no distress - Eyes PERRL - ENT normal pinna - Neck no masses - Respiratory normal expansion - Cardiovascular Rhythm: regular - Abdomen Abdomen: soft, non tender Assessment and Plan Assessment: GERD. We'll perform EGD.
--- NOTE | 2020-08-20 14:36 | P.OP ---
Date of Procedure: 08/20/20 Preoperative Diagnosis: GERD Postoperative Diagnosis: Peptic ulcer disease Procedure(s) Performed: Patient's placed on the endoscopy table in the lateral position. She received IV sedation. The gastroscope was oropharynx past esophagus and stomach. Scope was placed through the pylorus. The first and second portion of the duodenum appeared normal. Scope was brought back the antrum this. About inflamed. A biopsies performed. Scope was unretroflexed and in the proximal part of the stomach a ulcer was seen. There was no evidence of bleeding. There was a white fibrinous exudative base the ulcer. The ulcer was biopsied. The scope was then withdrawn. The patient had a previous hiatal hernia repair. There was no significant hiatal hernia seen. It was unclear if the wrap was displaced just below the GE junction. The distal esophagus. Normal. Proximal esophagus. Scope was withdrawn for patient.
== END 2020-08-20 13:51 | disposition home or self-care (01) ==
LOC: ORWHC2ENDO 11:35
PROVIDERS: ATTEND Surgery
DX: K21.9 Gastro-esophageal reflux disease without esophagitis (principal); K27.9 Peptic ulcer, site unspecified, unspecified as acute or chronic, without hemorrhage or perforation; K31.9 Disease of stomach and duodenum, unspecified; M79.7 Fibromyalgia; H91.90 Unspecified hearing loss, unspecified ear; Z79.899 Other long term (current) drug therapy; Z80.9 Family history of malignant neoplasm, unspecified; Z87.442 Personal history of urinary calculi; Z87.891 Personal history of nicotine dependence
CPT/HCPCS: 88305; 43239; J2001; J2704

== ENCOUNTER → 2020-11-06 | Outpatient (CLI) | payer BC ==
--- NOTE | 2020-11-07 11:12 | BD ---
EXAMINATION TYPE: Axial Bone Density DATE OF EXAM: 11/06/2020 COMPARISON: NONE CLINICAL HISTORY: Postmenopausal female Height: 5 FT 2 IN Weight: 168 FRAX RISK QUESTIONS: Alcohol (3 or more units per day): NO Family History (Parent hip fracture): NO Glucocorticoids (More than 3mos): NO (Ex: prednisone, prednisolone, methylprednisolone, dexamethasone, and hydrocortisone). History of Fracture in Adulthood: NO Secondary Osteoporosis: 1. Type 1 Diabetes: NO 2. Hyperthyroidism: NO 3. Menopause before 45: NO 4. Malnutrition: NO 5. Chronic liver disease: NO Rheumatoid Arthritis: NO Current Tobacco Use: NO RISK FACTORS HISTORY OF: Surgery to Spine/Hip(right/left)/Wrist (right/left): NO Family History of Osteoporosis: NO Active: YES Diet low in dairy products/other sources of calcium: NO Postmenopausal woman: AGE 59 Take estrogen and/or progesterone medications: NO Lost more than 2 inches in height since high school: YES MEDICATIONS: Additional Medications: IBUPROFEN, BUTALB,ACETAMIN Additional History: BILATERAL CARPAL SURG EXAM MEASUREMENTS: Bone mineral densitometry was performed using the [employer] System. Bone mineral density as measured about the Lumbar spine is: ----- L1-L4(G/cm2): 1.115 T Score Values are as follows: ----- L2: -0.3 ----- L3: -1.1 ----- L4: -1.0 ----- L1-L4: -0.5 BASELINE Bone mineral density about the R hip (g/cm2): 0.825 Bone mineral density about the L hip (g/cm2): 0.894 T Score values are as follows: -----R Neck: -1.5 -----L Neck: -1.0 -----R Total: -1.1 -----L Total: -0.7 BASELINE IMPRESSION: Osteopenia (T Score between -2.5 and -1) at the femoral neck level and overall in the right hip. There is slightly increased risk of fracture and the patient may be considered for treatment. Re-Screen 2-5 years. NOTE: T-SCORE=SD OF THE YOUNG ADULT MEAN.
--- NOTE | 2020-11-07 14:37 | MM ---
Reason for exam: screening (asymptomatic). Last mammogram was performed 1 year and 10 months ago. History: Family history of breast cancer in mother at age 50 and breast cancer in aunt at age 40. Physical Findings: A clinical breast exam by your physician is recommended on an annual basis and results should be correlated with mammographic findings. MG Screening Mammo w CAD Bilateral CC and MLO view(s) were taken. Prior study comparison: December 29, 2018, bilateral MG screening mammo w CAD. December 07, 2017, bilateral MG screening mammo w CAD. There are scattered fibroglandular densities. ASSESSMENT: Negative, BI-RAD 1 RECOMMENDATION: Routine screening mammogram of both breasts in 1 year.
== END | disposition home or self-care (01) ==
LOC: RADMAMWWP 15:54
PROVIDERS: ATTEND Obstetrics & Gynecology
DX: Z12.31 Encounter for screening mammogram for malignant neoplasm of breast (principal); Z80.3 Family history of malignant neoplasm of breast; M85.851 Other specified disorders of bone density and structure, right thigh
CPT/HCPCS: 77067; 77080

== ENCOUNTER 2020-11-14 06:26 | Emergency (ER) | payer BC ==
[2020-11-14 06:35] VITALS: PULSE 72; RESP 18; TEMP 97.9
[2020-11-14] MEDS ORDERED: SODIUM CHLORIDE 0.9% 500 ML 500 ML IV STA (06:35)
[2020-11-14] MEDS ORDERED: LORazepam 2 MG/ML INJ IV STA (06:51)
--- NOTE | 2020-11-14 06:54 | ED ---
Chest Pain HPI - General Chief Complaint: Chest Pain Stated Complaint: Palpitations Time Seen by Provider: 11/14/20 06:35 Source: patient, EMS, RN notes reviewed Mode of arrival: EMS Limitations: no limitations - History of Present Illness Initial Comments: 60-year-old female presents emergency Department chief complaint of heart racing, lightheadedness feeling. Patient's having on and off symptoms for the last 1 month. Patient states she uses warm flushed feeling, states that she starts feeling shaky states her her breathing becomes more rapid in her hands or feet become numb and tingly. Patient does state that she has some history of SVT with ablation by Dr. Salter. Patient had a stress test a few years ago which was negative. Denies any chest pain. She states she'll he feels her heart racing no shortness breath currently denies abdominal pain, nausea, vomiting, diarrhea constipation no focal weakness no headache or dizziness. Patient states she did take herself off some meds for headaches states that her heart racing symptoms have been going on longer than that. - Related Data Home Medications Medication Instructions Recorded Confirmed Fish Oil/Dha/Epa [Fish Oil 1,200 1 cap PO DAILY 04/30/17 08/15/20 mg Fish Oil] Multivitamins, Thera [Multivitamin 1 tab PO DAILY 04/30/17 08/15/20 (formulary)] Lysine HCl [l-Lysine] 1,000 mg PO DAILY 08/02/19 08/15/20 Butalb/APAP/Caff 50-325-40Mg 1 tab PO TID PRN 08/02/20 08/15/20 [Fioricet 50-325-40] Ibuprofen [Motrin] 400 mg PO BID PRN 08/02/20 08/15/20 Previous Rx's Medication Instructions Recorded Tamsulosin [Flomax] 0.4 mg PO DAILY #20 cap 08/02/20 Omeprazole 40 mg PO DAILY #90 capsule. 08/20/20 Allergies Allergy/AdvReac Type Severity Reaction Status Date / Time No Known Allergies Allergy Verified 08/15/20 12:04 Review of Systems ROS Statement: Those systems with pertinent positive or pertinent negative responses have been documented in the HPI. ROS Other: All systems not noted in ROS Statement are negative. EKG Findings - EKG Comments: EKG Findings:: EKG performed at 6:37 normal sinus rhythm with rate of 75 NE 168 QRS 80 QT/QTC 386/431 - EKG Results: EKG: interpreted by MALISSA Past Medical History Past Medical History: Chest Pain / Angina, Fibromyalgia, GERD/Reflux, Hearing Disorder / Deafness, Musculoskeletal Disorder, Neurologic Disorder, Supraventricular Tachycardia (SVT) Additional Past Medical History / Comment(s): Hx migraines, "broken rt ear drum" - loss of HEARING IN RT EAR, degenerative disc disease, diarrhea on and off since gallbladder removed., KIDNEY STONES History of Any Multi-Drug Resistant Organisms: None Reported Past Surgical History: Cardiac Ablation, Cholecystectomy, Ear Surgery, Hernia Repair, Orthopedic Surgery, Tonsillectomy, Tubal Ligation Additional Past Surgical History / Comment(s): Right ear surgery X2, right little finger surgery for dislocations, hiatal hernia repair, Colonoscopy, EGD. LITHOTRIPSY Past Anesthesia/Blood Transfusion Reactions: No Reported Reaction Past Psychological History: Anxiety Smoking Status: Former smoker Past Alcohol Use History: None Reported Past Drug Use History: None Reported - Past Family History Mother Family Medical History: Cancer Sister(s) Family Medical History: Cancer General Exam Limitations: no limitations General appearance: alert, in no apparent distress, anxious Head exam: Present: atraumatic, normocephalic, normal inspection Eye exam: Present: normal appearance, PERRL, EOMI. Absent: scleral icterus, conjunctival injection, periorbital swelling ENT exam: Present: normal exam, normal oropharynx, mucous membranes moist Neck exam: Present: normal inspection, full ROM. Absent: tenderness, meningismus, lymphadenopathy Respiratory exam: Present: normal lung sounds bilaterally. Absent: respiratory distress, wheezes, rales, rhonchi, stridor Cardiovascular Exam: Present: regular rate, normal rhythm, normal heart sounds. Absent: systolic murmur, diastolic murmur, rubs, gallop, clicks GI/Abdominal exam: Present: soft, normal bowel sounds. Absent: distended, tenderness, guarding, rebound, rigid Neurological exam: Present: alert Psychiatric exam: Present: anxious Course Vital Signs 11/14/20 11/14/20 06:27 08:12 Temperature 97.9 F Pulse Rate 72 72 Respiratory 18 18 Rate Blood Pressure 145/90 97/69 O2 Sat by Pulse 99 97 Oximetry Chest Pain MDM - MDM 60-year-old presented for palpitations. Patient symptoms more consistent with anxiety, panic attack. Patient had end-tidal CO2 of 19, hyperventilating upon arrival. Patient's been having symptoms and having increasing stress at work he states g does not show any acute changes labs unremarkable. patient feels improved after ativan we discharged in stable condition. Disposition Clinical Impression: Palpitations, Anxiety Disposition: HOME SELF-CARE Condition: Stable Instructions (If sedation given, give patient instructions): Heart Palpitations (ED) Additional Instructions: Please follow up with cardiology for Holter monitor. Please return to the Emergency Department if symptoms worsen or any other concerns. Is patient prescribed a controlled substance at d/c from ED?: No Referrals: Eyal Dupree MD [Primary Care Provider] - 1-2 days Time of Disposition: 08:26
[2020-11-14 07:00] LABS: Basophils # (A) 0.1 k/uL (0-0.2); Basophils % (A) 1 %; Eosinophils # (A) 0.3 k/uL (0-0.7); Eosinophils % (A) 5 %; HCT 38.1 % (34.0-46.0); HGB 12.7 gm/dL (11.4-16.0); Lymphocytes # (A) 2.4 k/uL (1.0-4.8); Lymphocytes % (A) 37 %; MCH 30.2 pg (25.0-35.0); MCHC 33.3 g/dL (31.0-37.0); MCV 90.7 fL (80.0-100.0); Mean Platelet Volume 7.3; Monocytes # (A) 0.3 k/uL (0-1.0); Monocytes % (A) 5 %; Neutrophils # (A) 3.2 k/uL (1.3-7.7); Neutrophils % (A) 49 %; Platelet Count 326 k/uL (150-450); RDW 13.6 % (11.5-15.5); WBC 6.4 k/uL (3.8-10.6)
[2020-11-14 07:05] LABS: Partial Thromboplastin Time 23.4 sec (22.0-30.0); Prothrombin Time 10.5 sec (9.0-12.0)
[2020-11-14 07:11] LABS: ALT 25 U/L (4-34); AST 34 U/L (14-36); African American GFR (CKD) >90 (>60 ml/min/1.73 sqM); Albumin 4.1 g/dL (3.5-5.0); Alkaline Phosphatase 94 U/L (38-126); Anion Gap 8 mmol/L; Blood Urea Nitrogen 18 mg/dL (7-17); Calcium 9.3 mg/dL (8.4-10.2); Carbon Dioxide 24 mmol/L (22-30); Chloride 110 mmol/L (98-107); Glucose 98 mg/dL (74-99); Magnesium 1.8 mg/dL (1.6-2.3); Non-African American GFR(CKD) >90 (>60 ml/min/1.73 sqM); Potassium 3.9 mmol/L (3.5-5.1); Sodium 142 mmol/L (137-145); Total Bilirubin 0.4 mg/dL (0.2-1.3); Total Protein 6.7 g/dL (6.3-8.2)
--- NOTE | 2020-11-14 07:31 | XR ---
EXAMINATION TYPE: XR chest 2V DATE OF EXAM: 11/14/2020 COMPARISON: 04/28/2020 HISTORY: Dysrhythmia TECHNIQUE: Frontal and lateral views of the chest are obtained. FINDINGS: Heart size is within normal limits. No focal consolidation, pneumothorax or pleural effusi on. Degenerative changes of the thoracic spine. IMPRESSION: 1. No acute pulmonary disease.
[2020-11-14 08:13] VITALS: BP 97/69
== END 2020-11-14 08:44 | disposition home or self-care (01) ==
LOC: EC 06:26
DX: F41.9 Anxiety disorder, unspecified (principal); H91.91 Unspecified hearing loss, right ear; M79.7 Fibromyalgia; K21.9 Gastro-esophageal reflux disease without esophagitis; Z87.891 Personal history of nicotine dependence
CPT/HCPCS: 36415; 71046; 80053; 83735; 84443; 84484; 85025; 85610; 85730; 93005; 96361; 96374; 99285

== ENCOUNTER → 2021-04-29 | Outpatient (CLI) | payer BC ==
--- NOTE | 2021-04-29 09:43 | MR ---
EXAMINATION TYPE: MR lumbar spine wo con DATE OF EXAM: 04/29/2021 COMPARISON: NONE HISTORY: Chronic low back pain, right side sciatica, DJD lumbar spine TECHNIQUE: T1 and T2 axial and sagittal images of the lumbar spine are submitted. FINDINGS: There is no abnormal signal seen within the visualized spinal cord or paraspinal soft tissu es. At L1-2 there is loss of disc signal and space L1-L2. Hypertrophic change of the facets. Neural sascha silva are patent. No disc herniation. At L2-3 there is no disc herniation or canal stenosis. No foraminal encroachment. At L3-4 there is no disc herniation or canal stenosis. No foraminal encroachment At L4-5 there is facet arthropathy with grade 1 anterolisthesis. No disc herniation. No canal stenosi s or foraminal encroachment At L5-S1 there is degenerative disc disease and facet arthropathy with no canal stenosis or foraminal encroachment. IMPRESSION: 1. Multilevel degenerative disc disease with grade 1 anterolisthesis L4 on L5 which appears degenerat hilaria likely secondary to vascular facet arthropathy. 2. Sclerotic changes involving the pars bilaterally at L5 with no definite defect consistent with pre vious CT scan of 08/02/2020.
== END | disposition home or self-care (01) ==
LOC: RADMRIMAIN 08:39
PROVIDERS: ATTEND Family Medicine
DX: M43.16 Spondylolisthesis, lumbar region (principal); M51.16 Intervertebral disc disorders with radiculopathy, lumbar region
CPT/HCPCS: 72148

== ENCOUNTER 2021-04-30 09:31 | Observation (INO) | payer BC ==
[2021-04-30] MEDS ORDERED: SODIUM CHLORIDE 0.9% 1,000 ML IV STA (09:58)
[2021-04-30 10:23] LABS: Basophils # (A) 0.1 k/uL (0-0.2); Basophils % (A) 1 %; Eosinophils # (A) 0.2 k/uL (0-0.7); Eosinophils % (A) 3 %; HCT 37.7 % (34.0-46.0); Lymphocytes # (A) 2.8 k/uL (1.0-4.8); Lymphocytes % (A) 32 %; MCH 31.6 pg (25.0-35.0); MCHC 34.3 g/dL (31.0-37.0); MCV 92.1 fL (80.0-100.0); Mean Platelet Volume 7.7; Monocytes # (A) 0.4 k/uL (0-1.0); Monocytes % (A) 5 %; Neutrophils % (A) 58 %; Platelet Count 320 k/uL (150-450); RDW 12.5 % (11.5-15.5); WBC 8.6 k/uL (3.8-10.6)
[2021-04-30 10:41] LABS: ALT 28 U/L (4-34); AST 41 U/L (14-36); African American GFR (CKD) >90 (>60 ml/min/1.73 sqM); Albumin 3.9 g/dL (3.5-5.0); Alkaline Phosphatase 103 U/L (38-126); Anion Gap 7 mmol/L; Blood Urea Nitrogen 22 mg/dL (7-17); Calcium 9.2 mg/dL (8.4-10.2); Carbon Dioxide 21 mmol/L (22-30); Chloride 109 mmol/L (98-107); Glucose 84 mg/dL (74-99); Magnesium 1.8 mg/dL (1.6-2.3); Non-African American GFR(CKD) >90 (>60 ml/min/1.73 sqM); Potassium 4.4 mmol/L (3.5-5.1); Sodium 137 mmol/L (137-145); Total Bilirubin 0.3 mg/dL (0.2-1.3); Total Protein 6.8 g/dL (6.3-8.2)
--- NOTE | 2021-04-30 10:41 | XR ---
EXAMINATION TYPE: XR chest 2V DATE OF EXAM: 04/30/2021 COMPARISON: Chest x-ray November 14, 2020 HISTORY: Weakness and pain. TECHNIQUE: Frontal and lateral views of the chest are obtained. FINDINGS: There is mild chronic parenchymal changes without suspicious focal air space opacity, pleu ral effusion, or pneumothorax seen. The cardiac silhouette size is within normal limits with atheros clerotic change aortic knob. Multilevel spurring in the spine. IMPRESSION: Chronic change without acute pulmonary process. No significant change from prior.
--- NOTE | 2021-04-30 10:45 | ED ---
General Adult HPI - General Chief complaint: Syncope Stated complaint: syncope Time Seen by Provider: 04/30/21 09:34 Source: patient Mode of arrival: EMS Limitations: no limitations - History of Present Illness Initial comments: 60-year-old female with a past medical history of fibromyalgia, SVT with ablation presents to the emergency room for a chief complaint of syncope. Patient was at work standing by a coworker's desk. Patient started to feel like everything was spinning and she was getting lightheaded. Patient states this lasted about 10 minutes while she walked to the laboratory area of her work. She then states she must have passed out. EMS reports she was a minimal lightheadedness. Denies any chest pain. Does admit to diaphoresis when this occurred.Patient has no other complaints at this time including shortness of breath, chest pain, nausea or vomiting, headache, or visual changes. - Related Data Home Medications Medication Instructions Recorded Confirmed Fish Oil/Dha/Epa [Fish Oil 1,200 1 cap PO DAILY 04/30/17 04/30/21 mg Fish Oil] Multivitamins, Thera [Multivitamin 1 tab PO DAILY 04/30/17 04/30/21 (formulary)] Ibuprofen [Motrin] 400 mg PO BID PRN 08/02/20 04/30/21 Ascorbic Acid [Vitamin C] 500 mg PO DAILY 11/14/20 04/30/21 Cholecalciferol [Vitamin D3 (25 25 mcg PO DAILY 11/14/20 04/30/21 Mcg = 1000 Iu)] Calcium Polycarbophil [Fiber-Lax] 1,250 mg PO BID 04/30/21 04/30/21 Escitalopram Oxalate [Lexapro] 10 mg PO DAILY 04/30/21 04/30/21 Lysine HCl [l-Lysine] 1,000 mg PO DAILY 04/30/21 04/30/21 Allergies Allergy/AdvReac Type Severity Reaction Status Date / Time No Known Allergies Allergy Verified 04/30/21 12:09 Review of Systems ROS Statement: Those systems with pertinent positive or pertinent negative responses have been documented in the HPI. ROS Other: All systems not noted in ROS Statement are negative. 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 LITHOTRIPSY Past Anesthesia/Blood Transfusion Reactions: No Reported Reaction Past Psychological History: Anxiety Smoking Status: Former smoker Past Alcohol Use History: None Reported Past Drug Use History: None Reported - Past Family History Mother Family Medical History: Cancer Sister(s) Family Medical History: Cancer General Exam Limitations: no limitations General appearance: alert, in no apparent distress Head exam: Present: atraumatic Eye exam: Present: normal appearance, PERRL, EOMI. Absent: scleral icterus, conjunctival injection ENT exam: Present: normal exam, mucous membranes moist Neck exam: Present: normal inspection, full ROM. Absent: tenderness Respiratory exam: Present: normal lung sounds bilaterally. Absent: respiratory distress, wheezes Cardiovascular Exam: Present: regular rate, normal rhythm, normal heart sounds GI/Abdominal exam: Present: soft, normal bowel sounds. Absent: distended, tenderness Neurological exam: Present: alert Course Vital Signs 04/30/21 04/30/21 09:36 12:05 Temperature 97.6 F Pulse Rate 67 60 Pulse Rate [ 65 Standing] Respiratory 18 Rate Blood Pressure 102/68 105/68 Blood Pressure 103/70 [Standing] O2 Sat by Pulse 93 L Oximetry EKG Findings - EKG Comments: EKG Findings:: NSR, vent rate 68, pr int 162, qtc 442 Medical Decision Making - Medical Decision Making Chest x-ray shows no acute process. CT brain shows remote ischemia. CT of the abdomen and pelvis shows a 5.1 cm right adnexal cystic lesion, cyst in neoplasm in the differential. Patient is also constipated on ct. Patient has been seeing Dr. Yu for this. Cyst is on the right however pain is on the left. The patient can follow up outpatient for this however given the dizziness as well as syncopal episode we will admit her for cardiology and neurology to evaluate. - Lab Data Result diagrams: 04/30/21 10:10 04/30/21 10:10 Lab Results 04/30/21 04/30/21 04/30/21 Range/Units 10:10 10:10 10:10 WBC 8.6 (3.8-10.6) k/uL RBC 4.10 (3.80-5.40) m/uL Hgb 13.0 (11.4-16.0) gm/dL Hct 37.7 (34.0-46.0) % MCV 92.1 (80.0-100.0) fL MCH 31.6 (25.0-35.0) pg MCHC 34.3 (31.0-37.0) g/dL RDW 12.5 (11.5-15.5) % Plt Count 320 (150-450) k/uL MPV 7.7 Neutrophils % 58 % Lymphocytes % 32 % Monocytes % 5 % Eosinophils % 3 % Basophils % 1 % Neutrophils # 5.0 (1.3-7.7) k/uL Lymphocytes # 2.8 (1.0-4.8) k/uL Monocytes # 0.4 (0-1.0) k/uL Eosinophils # 0.2 (0-0.7) k/uL Basophils # 0.1 (0-0.2) k/uL PT 10.5 (9.0-12.0) sec INR 1.0 (<1.2) APTT 21.6 L (22.0-30.0) sec Sodium 137 (137-145) mmol/L Potassium 4.4 (3.5-5.1) mmol/L Chloride 109 H (98-107) mmol/L Carbon Dioxide 21 L (22-30) mmol/L Anion Gap 7 mmol/L BUN 22 H (7-17) mg/dL Creatinine 0.74 (0.52-1.04) mg/dL Est GFR (CKD-EPI)AfAm >90 (>60 ml/min/1.73 sqM) Est GFR (CKD-EPI)NonAf >90 (>60 ml/min/1.73 sqM) Glucose 84 (74-99) mg/dL Calcium 9.2 (8.4-10.2) mg/dL Magnesium 1.8 (1.6-2.3) mg/dL Total Bilirubin 0.3 (0.2-1.3) mg/dL AST 41 H (14-36) U/L ALT 28 (4-34) U/L Alkaline Phosphatase 103 (38-126) U/L Troponin I (0.000-0.034) ng/mL Total Protein 6.8 (6.3-8.2) g/dL Albumin 3.9 (3.5-5.0) g/dL Urine Color Urine Appearance (Clear) Urine pH (5.0-8.0) Ur Specific Robson (1.001-1.035) Urine Protein (Negative) Urine Glucose (UA) (Negative) Urine Ketones (Negative) Urine Blood (Negative) Urine Nitrite (Negative) Urine Bilirubin (Negative) Urine Urobilinogen (<2.0) mg/dL Ur Leukocyte Esterase (Negative) Urine RBC (0-5) /hpf Urine WBC (0-5) /hpf Ur Squamous Epith Cells (0-4) /hpf Urine Mucus (None) /hpf Coronavirus (PCR) (Not Detectd) 04/30/21 04/30/21 04/30/21 Range/Units 10:10 10:10 11:57 WBC (3.8-10.6) k/uL RBC (3.80-5.40) m/uL Hgb (11.4-16.0) gm/dL Hct (34.0-46.0) % MCV (80.0-100.0) fL MCH (25.0-35.0) pg MCHC (31.0-37.0) g/dL RDW (11.5-15.5) % Plt Count (150-450) k/uL MPV Neutrophils % % Lymphocytes % % Monocytes % % Eosinophils % % Basophils % % Neutrophils # (1.3-7.7) k/uL Lymphocytes # (1.0-4.8) k/uL Monocytes # (0-1.0) k/uL Eosinophils # (0-0.7) k/uL Basophils # (0-0.2) k/uL PT (9.0-12.0) sec INR (<1.2) APTT (22.0-30.0) sec Sodium (137-145) mmol/L Potassium (3.5-5.1) mmol/L Chloride (98-107) mmol/L Carbon Dioxide (22-30) mmol/L Anion Gap mmol/L BUN (7-17) mg/dL Creatinine (0.52-1.04) mg/dL Est GFR (CKD-EPI)AfAm (>60 ml/min/1.73 sqM) Est GFR (CKD-EPI)NonAf (>60 ml/min/1.73 sqM) Glucose (74-99) mg/dL Calcium (8.4-10.2) mg/dL Magnesium (1.6-2.3) mg/dL Total Bilirubin (0.2-1.3) mg/dL AST (14-36) U/L ALT (4-34) U/L Alkaline Phosphatase (38-126) U/L Troponin I <0.012 (0.000-0.034) ng/mL Total Protein (6.3-8.2) g/dL Albumin (3.5-5.0) g/dL Urine Color Yellow Urine Appearance Clear (Clear) Urine pH 5.5 (5.0-8.0) Ur Specific Robson >1.050 H (1.001-1.035) Urine Protein Negative (Negative) Urine Glucose (UA) Negative (Negative) Urine Ketones Negative (Negative) Urine Blood Negative (Negative) Urine Nitrite Negative (Negative) Urine Bilirubin Negative (Negative) Urine Urobilinogen <2.0 (<2.0) mg/dL Ur Leukocyte Esterase Moderate H (Negative) Urine RBC 3 (0-5) /hpf Urine WBC 2 (0-5) /hpf Ur Squamous Epith Cells 4 (0-4) /hpf Urine Mucus Occasional H (None) /hpf Coronavirus (PCR) Not Detected (Not Detectd) Disposition Clinical Impression: Syncope, Dizziness, Dehydration, Abdominal pain, Ovarian cyst Disposition: ADMITTED IP TO THIS HOSP Is patient prescribed a controlled substance at d/c from ED?: No Referrals: Eyal Dupree MD [Primary Care Provider] - 1-2 days Time of Disposition: 13:32
[2021-04-30 10:56] LABS: Prothrombin Time 10.5 sec (9.0-12.0)
[2021-04-30 10:58] LABS: Partial Thromboplastin Time 21.6 sec (22.0-30.0)
--- NOTE | 2021-04-30 11:08 | CT ---
EXAMINATION TYPE: CT brain wo con DATE OF EXAM: 04/30/2021 COMPARISON: None HISTORY: dizziness, syncope CT DLP: 1040.4 mGycm Automated exposure control for dose reduction was used. FINDINGS: Changes of right chronic mastoiditis. Mild generalized degenerative change. Faint periventricular and deep white matter areas of low attenu ation are nonspecific but most typical remote white matter ischemia. Area of low attenuation the left basal ganglia. No evidence of acute hemorrhage or mass effect. No midline shift. Calvarium intact. Orbits are symmetric. Craniocervical junction maintained. Sella turcica has a sandy l appearance. IMPRESSION: 1. Degenerative and nonspecific white matter changes most typical remote ischemia. Area of low attenu ation in the basal ganglia also likely related to remote ischemia. If there is concern for acute isch emia correlate with MRI.
--- NOTE | 2021-04-30 11:17 | CT ---
EXAMINATION TYPE: CT abdomen pelvis w con DATE OF EXAM: 04/30/2021 COMPARISON: HISTORY: left flank pain CT DLP: 1012.2 mGycm Automated exposure control for dose reduction was used. CONTRAST: CT scan of the abdomen pelvis is performed with IV Contrast, patient injected with 100 mL of Isovue 3 00. FINDINGS- LUNG BASES-right basilar subsegmental consolidation anteriorly most typical of atelectasis or scar. 5 mm left lower lobe pulmonary nodule. LIVER/GB- No gross abnormality is appreciated. PANCREAS- No gross abnormality is seen. SPLEEN- No gross abnormality is seen. ADRENALS- No gross abnormality is seen. KIDNEYS/BLADDER- no hydronephrosis nephrolithiasis or renal mass. BOWEL-extensive retained fecal debris throughout the colon.. Small hiatal hernia with suggestion of s urgery involving the epigastrium. LYMPH NODES- No greater than 1cm abdominal or pelvic lymph nodes areappreciated. OSSEOUS STRUCTURES-hypertrophic and degenerative change of the spine. OTHER- there is a large right adnexal lesion measuring 5.1 cm. Likely related to the ovary. Atherosc lerotic change aorta. No evidence of aneurysm. IMPRESSION- 1. 5.1 cm right adnexal cystic lesion ovarian cyst and ovarian cystic neoplasms in the differential d iagnosis correlate clinically. 2. Extensive retained fecal debris correlate for constipation. 3. Small hiatal hernia. 4. There is a 5 mm stable left lower lobe pulmonary nodule unchanged from 08/02/2020.
[2021-04-30 12:21] LABS: Appearance,Urine Clear (Clear); Bilirubin,Urine Negative (Negative); Blood,Urine Negative (Negative); Color,Urine Yellow; Glucose,Urine (UA) Negative (Negative); Ketones,Urine Negative (Negative); Leukocyte Esterase,Urine Moderate (Negative); Mucus,Urine Occasional /hpf; Nitrite,Urine Negative (Negative); PH, Urine 5.5 (5.0-8.0); Protein,Urine Negative (Negative); RBC,Urine 3 /hpf (0-5); Squamous Epithelial Cell,Urine 4 /hpf (0-4); Urobilinogen,Urine <2.0 mg/dL (<2.0); WBC,Urine 2 /hpf (0-5)
[2021-04-30 13:16] LABS: Specific Gravity,Urine >1.050 (1.001-1.035)
[2021-04-30] MEDS ORDERED: NITROGLYCERIN SL TABS 0.4 MG TAB SUBLINGUAL PRN (13:34)
[2021-04-30] MEDS ORDERED: HYDROcodone/APAP 5-325MG 1 EACH TAB PO PRN (17:27)
[2021-04-30] MEDS: PANTOPRAZOLE 40 MG/10 ML VIAL IVP SCH (18:00)
--- NOTE | 2021-05-01 07:48 | ECHOF ---
Referral Reason:LV function MEASUREMENTS -------- HEIGHT: 157.5 cm WEIGHT: 72.6 kg BP: 103/70 RVIDd: 3.5 cm (< 3.3) IVSd: 1.2 cm (0.6 - 1.1) LVIDd: 3.2 cm (3.9 - 5.3) LVPWd: 1.4 cm (0.6 - 1.1) IVSs: 1.4 cm LVIDs: 1.9 cm LVPWs: 1.6 cm LAESV Index (A-L): 38.15 ml/m Ao Diam: 3.2 cm (2.0 - 3.7) AV Cusp: 1.7 cm (1.5 - 2.6) LA Diam: 2.9 cm (2.7 - 3.8) MV EXCURSION: 11.892 mm (> 18.000) MV EF SLOPE: 61 mm/s (70 - 150) EPSS: 0.6 cm MV E Osmani: 0.74 m/s MV DecT: 198 ms MV A Osmani: 0.81 m/s MV E/A Ratio: 0.92 RAP: 5.00 mmHg RVSP: 27.67 mmHg FINDINGS -------- Sinus rhythm. This was a technically adequate study. The left ventricular size is normal. There is mild concentric left ventricular hypertrophy. Overa ll left ventricular systolic function is normal with, an EF between 55 - 60 %. The right ventricle is mildly enlarged. LA is moderately dilated 34-39 ml/m2 The right atrial size is normal. Interatrial and interventricular septum intact. There is no evidence of aortic regurgitation. There is no evidence of aortic stenosis. [id number] mitral regurgitation is present. Mild tricuspid regurgitation present. There is no evidence of pulmonary hypertension. The right v entricular systolic pressure, as measured by Doppler, is 27.67mmHg. Trace/mild (physiologic) pulmonic regurgitation. The aortic root size is normal. IVC Not well visulized. There is no pericardial effusion. CONCLUSIONS -------- 1. The left ventricular size is normal. 2. There is mild concentric left ventricular hypertrophy. 3. Overall left ventricular systolic function is normal with, an EF between 55 - 60 %. 4. The right ventricle is mildly enlarged. 5. LA is moderately dilated 34-39 ml/m2 6. [id number] mitral regurgitation is present. 7. Mild tricuspid regurgitation present. 8. Trace/mild (physiologic) pulmonic regurgitation. TELEPHONE ADVICE NURSE: Winnie Rizo RDCS
[2021-05-01] MEDS ORDERED: ESCITALOPRAM 10 MG TAB PO SCH (09:00)
[2021-05-01] MEDS ORDERED: NON FORMULARY DRUG (Fish Oil/Dha/Epa [Fish Oil 1,200 Mg Fish Oil] 1 EACH Capsule) PO SCH (09:00)
[2021-05-01] MEDS ORDERED: NON FORMULARY DRUG (Lysine Hcl [L-Lysine] 1,000 MG Tablet) PO SCH (09:00)
[2021-05-01] MEDS ORDERED: CHOLECALCIFEROL 25 MCG (1000 IU) TABLET PO SCH (09:00)
[2021-05-01] MEDS ORDERED: MULTIVITAMINS, THERA 1 EACH TAB PO SCH (09:00)
[2021-05-01] MEDS ORDERED: ASCORBIC ACID 500 MG TAB PO SCH (09:00)
[2021-05-01] MEDS ORDERED: ASPIRIN 325 MG TAB PO SCH (09:00)
[2021-05-01] MEDS ORDERED: ASPIRIN 81 MG PO SCH (09:15)
[2021-05-01] MEDS: PANTOPRAZOLE 40 MG/10 ML VIAL IVP SCH (10:26)
--- NOTE | 2021-05-01 10:48 | P.CRDCN ---
History of Present Illness Consult date: 05/01/21 History of present illness: HISTORY OF PRESENT ILLNESS: This is a 60-year-old female with a past medical history significant for Mnire's disease and former nicotine dependence. Patient follows in the office with Dr. Baeza. We have been asked to see the patient in consultation for syncope. Patient examined at the bedside. Patient states yesterday while at work she was standing next to a coworker's desk when she began to feel like her whole head was spinning. Patient reports it does not feel like the entire room was spinning. She denied feeling any shortness of breath or chest pain. She states the next thing she remembers she was on the floor. She does not remember falling to the ground. She denied any loss of bowel or bladder control. Denies biting her tongue. She states that she has been up walking to the bathroom overnight and has felt dizzy and lightheaded. Apparently, the patient has been evaluated by Dr. Fernandes in the past and diagnosed with Mnire's disease EKG reveals sinus mechanism with no signs of acute ischemia CT brain: Degenerative and nonspecific white matter changes most typical remote ischemia. Area of low attenuation in the basal ganglia also likely related to remote ischemia. Echocardiogram completed revealed ejection fraction 55-60%. [id number] mitral regurgitation. Mild tricuspid regurgitation. The patient underwent stress testing in December 2020 at the cardiology office which was negative for ischemia Chest xray chronic changes without acute pulmonary process. Laboratory data: WBC 8.6. Hemoglobin 13.0. Platelet count 320. Sodium 137. Potassium 4.4. BUN 22. Creatinine 0.74. Magnesium 1.8. Troponin negative 3. Current home cardiac medications include none REVIEW OF SYSTEMS: At the time of my exam: CONSTITUTIONAL: Denies fever or chills. HEENT: Denies blurred vision, vision changes, or eye pain. Denies hemoptysis CARDIOVASCULAR: Denies chest pain. Denies orthopnea. Denies PND. Denies palpitations RESPIRATORY: Denies shortness of breath. GASTROINTESTINAL: Denies abdominal pain. Denies nausea or vomiting. HEMATOLOGIC: Denies bleeding disorders. GENITOURINARY: Denies any blood in urine. SKIN: Denies pruitis. Denies rash. PHYSICAL EXAM: VITAL SIGNS: Reviewed. GENERAL: Well-developed in no acute distress. HEENT: Head is normocephalic. Pupils are equal, round. Sclerae anicteric. Mucous membranes of the mouth are moist. Neck supple. No JVD or thyromegaly LUNGS: Respirations even and unlabored. Lungs essentially clear to auscultation bilaterally. HEART: Regular rate and rhythm. S1 and S2 heard. ABDOMEN: Soft. Nondistended. Nontender. EXTREMITIES: Normal range of motion. No clubbing or cyanosis. Peripheral pulses intact. No lower extremity edema NEUROLOGIC: Awake and alert. Oriented x 3. ASSESSMENT: Syncope History of Mnire's disease Former nicotine dependence Abnormal brain CT revealing possible remote ischemia PLAN: 2D echo obtained and reviewed Check orthostatic blood pressures Continue telemetry monitoring Possible event monitor at discharge Further recommendations pending patient course Nurse practitioner note has been reviewed by physician. Signing provider agrees with the documented findings, assessment, and plan of care. 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 LITHOTRIPSY Past Anesthesia/Blood Transfusion Reactions: No Reported Reaction Past Psychological History: Anxiety Smoking Status: Former smoker Past Alcohol Use History: None Reported Additional Past Alcohol Use History / Comment(s): Quit smoking 2017, started at age 17, 1 PPD. Past Drug Use History: None Reported - Past Family History Mother Family Medical History: Cancer Sister(s) Family Medical History: Cancer Medications and Allergies Home Medications Medication Instructions Recorded Confirmed Type Fish Oil/Dha/Epa [Fish Oil 1,200 1 cap PO DAILY 04/30/17 04/30/21 History mg Fish Oil] Multivitamins, Thera [Multivitamin 1 tab PO DAILY 04/30/17 04/30/21 History (formulary)] Ibuprofen [Motrin] 400 mg PO BID PRN 08/02/20 04/30/21 History Ascorbic Acid [Vitamin C] 500 mg PO DAILY 11/14/20 04/30/21 History Cholecalciferol [Vitamin D3 (25 25 mcg PO DAILY 11/14/20 04/30/21 History Mcg = 1000 Iu)] Calcium Polycarbophil [Fiber-Lax] 1,250 mg PO BID 04/30/21 04/30/21 History Escitalopram Oxalate [Lexapro] 10 mg PO DAILY 04/30/21 04/30/21 History Lysine HCl [l-Lysine] 1,000 mg PO DAILY 04/30/21 04/30/21 History Allergies Allergy/AdvReac Type Severity Reaction Status Date / Time No Known Allergies Allergy Verified 04/30/21 12:09 Physical Exam Vitals: Vital Signs Temp Pulse Pulse Pulse Resp BP BP 05/01/21 07:00 98.1 F 74 19 104/71 05/01/21 02:10 57 L 65 16 05/01/21 02:00 98.2 F 57 L 16 97/61 04/30/21 22:56 97.6 F 63 18 121/79 04/30/21 22:45 97.8 F 64 20 126/70 04/30/21 19:00 62 20 04/30/21 18:05 74 16 119/59 04/30/21 12:05 60 65 105/68 04/30/21 09:36 97.6 F 67 18 102/68 BP Pulse Ox 05/01/21 07:00 93 L 05/01/21 02:10 05/01/21 02:00 96 04/30/21 22:56 98 04/30/21 22:45 98 04/30/21 19:00 97 04/30/21 18:05 96 04/30/21 12:05 103/70 04/30/21 09:36 93 L Intake and Output 04/30/21 05/01/21 05/01/21 22:59 06:59 14:59 Other: Voiding Method Toilet # Voids 1 Weight 72.575 kg Results 04/30/21 10:10 04/30/21 10:10 Cardiac Enzymes 04/30/21 04/30/21 04/30/21 Range/Units 10:10 10:10 15:23 AST 41 H (14-36) U/L Troponin I <0.012 <0.012 (0.000-0.034) ng/mL 04/30/21 Range/Units 18:51 AST (14-36) U/L Troponin I <0.012 (0.000-0.034) ng/mL Coagulation 04/30/21 Range/Units 10:10 PT 10.5 (9.0-12.0) sec APTT 21.6 L (22.0-30.0) sec CBC 04/30/21 Range/Units 10:10 WBC 8.6 (3.8-10.6) k/uL RBC 4.10 (3.80-5.40) m/uL Hgb 13.0 (11.4-16.0) gm/dL Hct 37.7 (34.0-46.0) % Plt Count 320 (150-450) k/uL Comprehensive Metabolic Panel 04/30/21 Range/Units 10:10 Sodium 137 (137-145) mmol/L Potassium 4.4 (3.5-5.1) mmol/L Chloride 109 H (98-107) mmol/L Carbon Dioxide 21 L (22-30) mmol/L BUN 22 H (7-17) mg/dL Creatinine 0.74 (0.52-1.04) mg/dL Glucose 84 (74-99) mg/dL Calcium 9.2 (8.4-10.2) mg/dL AST 41 H (14-36) U/L ALT 28 (4-34) U/L Alkaline Phosphatase 103 (38-126) U/L Total Protein 6.8 (6.3-8.2) g/dL Albumin 3.9 (3.5-5.0) g/dL Current Medications Generic Name Dose Route Start Last Admin Trade Name Freq PRN Reason Stop Dose Admin Hydrocodone Bitart/Acetaminophen 1 each 04/30/21 17:27 04/30/21 18:00 Hydrocodone/Apap 5-325mg 1 Each Tab PO 1 each Q6HR PRN Administration Pain Ascorbic Acid 500 mg 05/01/21 09:00 Ascorbic Acid 500 Mg Tab PO DAILY [facility] Aspirin 325 mg 05/01/21 09:00 Aspirin 325 Mg Tab PO DAILY [facility] Calcium Polycarbophil 1,250 mg 04/30/21 21:00 04/30/21 23:13 Calcium Polycarbophil 625 Mg Tab PO 1,250 mg BID [facility] Administration Cholecalciferol 25 mcg 11/17/21 09:00 Cholecalciferol 25 Mcg (1000 Iu) Tablet PO DAILY [facility] Escitalopram Oxalate 10 mg 05/01/21 09:00 Escitalopram 10 Mg Tab PO DAILY [facility] Multivitamins 1 each 05/01/21 09:00 Multivitamins, Thera 1 Each Tab PO DAILY [facility] Pantoprazole Sodium 40 mg 04/30/21 21:00 04/30/21 18:00 Pantoprazole 40 Mg/10 Ml Vial IVP 40 mg BID VIVIAN Administration Intake and Output 04/30/21 05/01/21 05/01/21 22:59 06:59 14:59 Other: Voiding Method Toilet # Voids 1 Weight 72.575 kg 04/30/21 10:10 04/30/21 10:10
--- NOTE | 2021-05-01 14:22 | US ---
EXAMINATION TYPE: US carotid duplex BILAT DATE OF EXAM: 05/01/2021 COMPARISON: CT brain 04/30/2021 CLINICAL HISTORY: 60-year-old female Dizziness. TECHNIQUE: Carotid duplex ultrasound examination. Indirect Doppler criteria was utilized. FINDINGS: EXAM MEASUREMENTS: RIGHT: Peak Systolic Velocity (PSV) cm/sec ----- Right CCA: 60.3 ----- Right ICA: 87.5 ----- Right ECA: 123.9 ICA/CCA ratio: 1.5 RIGHT: End Diastole cm/sec ----- Right CCA: 21.5 ----- Right ICA: 30.5 ----- Right ECA: 17.4 LEFT: Peak Systolic Velocity (PSV) cm/sec ----- Left CCA: 72.0 ----- Left ICA: 78.4 ----- Left ECA: 114.3 ICA/CCA ratio: 1.1 LEFT: End Diastole cm/sec ----- Left CCA: 25.4 ----- Left ICA: 28.9 ----- Left ECA: 15.4 VERTEBRALS (direction of flow): Right Vertebral: Antegrade Left Vertebral: Antegrade Rhythm: Normal Business English Instructor notes: No elevated velocities IMPRESSION: No hemodynamically significant internal carotid artery stenosis on either side. Criteria for Assigning % of Stenosis / Diameter reduction (Estimation based on the indirect measurements of the internal carotid artery velocities (ICA PSV). 1. Normal (no stenosis)=ICA PSV < 125 cm/s: ratio < 2.0: ICA EDV<40 cm/s. 2. Less than 50% stenosis=ICA PSV < 125 cm/s: ratio < 2.0: ICA EDV<40 cm/s. 3. 50 to 69% stenosis=ICA PSV of 125 to 230 cm/s: ration 2.0 ? 4.0: ICA EDV 40-100 cm/s. 4. Greater than 70% stenosis to near occlusion= ICA PSV > 230 cm/s: ratio > 4.0: ICA EDV > 100 cm/s. 5. Near occlusion= ICA PSV velocities may be low or undetectable: variable ratio and ICA EDV. 6. Total occlusion=unable to detect flow.
--- NOTE | 2021-05-01 14:35 | P.CNNES ---
History of Present Illness Consult date: 05/01/21 Requesting physician: Geraldo Gutierrez Reason for Consult: dizziness, remote ischemia History of Present Illness: Patient is a 60-year-old female came to the hospital by ambulance yesterday at 9:31 AM for dizziness, vertigo and near syncope. Patient states that she has been off work for a few days due to sore throat from last Thursday04/24/2021, for which she was given a course of Z-Micah. She started feeling better on Thursday, went back to work on Thursday which is yesterday and was feeling fine in the morning. While at work, she was doing routine thing, answering the phone, and when she stood up, her head started spinning. She felt very lightheaded, then she started breaking out in sweat. The room was not spinning, but inside her head was spinning. She felt pressure in her head. She made it back to the lab, and when she got there, I asked her coworker Bath to help her. She was about to fall, but her coworker got her down on the floor, she did not fall. The symptoms lasted for 10-15 minutes. As per EMS flow sheet, when they arrived, patient was laying on the floor, alert and oriented. While at work, the patient stated she suddenly got lightheaded and dizzy and diaphoretic and started to fall to the floor. A coworker was able to catch her and laid her down. She said while laying there, she also had some nausea. Patient only complained of pain in her left lower quadrant. The pain was sharp but has been happening intermittently over the last 2 weeks. Her blood glucose was 112. Patient felt nauseous again while being transferred to the ER. She was given Zofran 4 mg. Her blood pressure at the scene was 140/92, pulse 78, respiration 14 and saturation 99%. Her vital signs on arrival was blood pressure 102/68 and pulse rate of 67 and she was afebrile. Blood test shows normal CBC, PT/PTT, Chem-20. BUN is minimally elevated 22. Normal creatinine. AST is 41. Troponin negative. UA shows moderate leukocyte esterase. 2 WBC. Lim virus PCR negative. Chest x-ray showed chronic changes without acute pulmonary process. No significant change from prior. CT head showed degenerative and nonspecific white matter changes most typical of a remote ischemia. Area of low attenuation in the basal ganglia also likely related to remote ischemia. CT of abdomen and pelvis shows 5.1 cm right adnexal cystic lesion will regain cyst and ovarian cystic neoplasm's in the differential diagnosis. Extensive retained fecal debris, correlate for constipation. Small hiatal hernia. 5 mm stable left lower lobe pulmonary nodule unchanged from 08/02/2020. EKG shows normal sinus rhythm. 2-D echo shows normal left ventricle size, mild concentric LVH, EF is between 55-60%. Left atrium is moderately dilated. Mild to moderate MR. Patient's home medications include Lexapro 10 mg, vitamin D, ibuprofen, fish oil, multivitamin. Patient has been fully vaccinated for Covid. Patient states that for the last 1 year, she has been having what sounds like hot flash. She would be feeling fine in out of blue, her whole-body gets heated up really fast, and she would start sweating profusely in her thighs, axilla, and the chest and head. It may occur about once or twice a week and lasts for about a 4-5 minutes. She gets scared when this sensation happens, but is otherwise not confused or disoriented. Patient states that she stopped having menses about a year ago as well. Never been diagnosed with any hot flashes. These seems to be getting worse. She also has anxiety disorder, and this episode makes her anxiety worse. Patient also states that she has hole in the ear drum on the right side since she was age 7. She underwent couple surgeries which was not helpful. Over years she has been losing her hearing particularly on the right side. She also mentions that whenever she lays back or moves her head [id number], she feels dizzy, has to stay in one spot for the symptoms to resolve. If she gets up too fast, or if she bends down, she feels dizzy. Patient states that last year she was seen by Dr. Fernandes, who performed some in that ear functions and diagnosed with inflammation behind the right ear. She was given 3 doses of IV steroids in the office followed by oral steroids thereafter. She does not remember seeing ENT specialist in the last 1 year. Patient states that she started smoking a pack a day at age 17 and by age 23 she was smoking 2 packs per day, which she continued for 35 years, quit 7 years ago. Denies any alcohol or drugs. Review of Systems As mentioned above in detail. All other 14 point review of systems unremarkable. Denies any abdominal pain, double vision, slurred speech facial droop. No fever. No rash. No weight loss. 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 LITHOTRIPSY Past Anesthesia/Blood Transfusion Reactions: No Reported Reaction Past Psychological History: Anxiety Smoking Status: Former smoker Past Alcohol Use History: None Reported Additional Past Alcohol Use History / Comment(s): Quit smoking 2016, started at age 17, 1 PPD. Past Drug Use History: None Reported - Past Family History Mother Family Medical History: Cancer Sister(s) Family Medical History: Cancer Medications and Allergies Home Medications Medication Instructions Recorded Confirmed Type Fish Oil/Dha/Epa [Fish Oil 1,200 1 cap PO DAILY 04/30/17 04/30/21 History mg Fish Oil] Multivitamins, Thera [Multivitamin 1 tab PO DAILY 04/30/17 04/30/21 History (formulary)] Ibuprofen [Motrin] 400 mg PO BID PRN 08/02/20 04/30/21 History Ascorbic Acid [Vitamin C] 500 mg PO DAILY 11/14/20 04/30/21 History Cholecalciferol [Vitamin D3 (25 25 mcg PO DAILY 11/14/20 04/30/21 History Mcg = 1000 Iu)] Calcium Polycarbophil [Fiber-Lax] 1,250 mg PO BID 04/30/21 04/30/21 History Escitalopram Oxalate [Lexapro] 10 mg PO DAILY 04/30/21 04/30/21 History Lysine HCl [l-Lysine] 1,000 mg PO DAILY 04/30/21 04/30/21 History Aspirin 81 mg PO DAILY #30 tab 05/01/21 Rx Meclizine [Antivert] 12.5 mg PO TID PRN #30 tab 05/01/21 Rx Allergies Allergy/AdvReac Type Severity Reaction Status Date / Time No Known Allergies Allergy Verified 04/30/21 12:09 Physical Examination - Vital Signs Vital Signs: Vital Signs Temp Pulse Pulse Pulse Resp BP BP 05/01/21 09:16 97.9 F 77 20 05/01/21 07:00 98.1 F 74 19 104/71 05/01/21 02:10 57 L 65 16 05/01/21 02:00 98.2 F 57 L 16 97/61 04/30/21 22:56 97.6 F 63 18 121/79 04/30/21 22:45 97.8 F 64 20 126/70 04/30/21 19:00 62 20 04/30/21 18:05 74 16 119/59 04/30/21 12:05 60 65 105/68 04/30/21 09:36 97.6 F 67 18 102/68 BP BP Pulse Ox 05/01/21 09:16 133/90 98 05/01/21 07:00 93 L 05/01/21 02:10 05/01/21 02:00 96 04/30/21 22:56 98 04/30/21 22:45 98 04/30/21 19:00 97 04/30/21 18:05 96 04/30/21 12:05 103/70 04/30/21 09:36 93 L Intake and Output 04/30/21 05/01/21 05/01/21 22:59 06:59 14:59 Other: Voiding Method Toilet # Voids 1 Weight 72.575 kg Patient is a middle aged female, in no acute distress. Patient is alert awake oriented to time place and person. Speech and language functions are normal. Attention, concentration and fund of knowledge is adequate. Patient can name and repeat very well, no aphasia or dysarthria. On cranial examination, pupils are round and reacting to light, visual carrion are full on confrontation, extraocular muscles are intact with no nystagmus. Fa ce is symmetric, tongue protrudes to the midline. Palatal elevation and sensation normal. Her hearing is severely decreased for finger rubbing bilaterally, right worse than left. Even for routine conversation, she has some hearing impairment. Her shoulder shrug normal, facial sensation normal. On muscle strength testing, there is no pronator drift and the strength is normal in arms and legs distally and proximally. Deep tendon reflexes are 2 all over in the arms and legs and plantars downgoing bilaterally. No clonus. Sensory to touch is equal with no neglect. Cerebellar function showed no ataxia for [id number] testing. No dysdiadochokinesia. Tone and bulk of muscles normal. Gait deferred. On general examination, there is no carotid bruit or murmur, S1-S2 audible. Abdomen is soft nontender. Chest is clear. Peripheral pulses are present. No edema. Results - Laboratory Findings CBC and BMP: 04/30/21 10:10 04/30/21 10:10 Abnormal Lab Findings: Abnormal Labs 04/30/21 04/30/21 04/30/21 10:10 10:10 11:57 APTT 21.6 L Chloride 109 H Carbon Dioxide 21 L BUN 22 H AST 41 H Ur Specific [place] >1.050 H Ur Leukocyte Esterase Moderate H Urine Mucus Occasional H Assessment and Plan Assessment: * Episode of vertigo, dizziness, possible due to peripheral vestibular dysfunction. 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 * History of perforated right eardrum at age 7, with surgeries times twice on the right ear. * 1 year history of episodic feeling hot sensation and profuse sweating. Differential diagnosis is between hot flash from postmenopausal status, vestibular dysfunction related or less likely simple partial seizure. * Hypertension * X tobacco use * Adnexal mass noted on CT. Plan: * Carotid Doppler was performed today, which revealed no hemodynamically significant stenosis of either ICA. Antegrade flow in both vertebral arteries. * 2-D echo revealed normal left ventricular size, mild concentric LVH. EF is normal between 55-60%. Left atrium is moderately dilated. Mild to moderate M R. * Cardiology on board. They have recommended orthostatics and an event monitor hooker on to rule out arrhythmia. Orthostatics revealed supine blood pressure 111/74, pulse rate 84, sitting 114/81, pulse rate 69 and standing 88/66 with pulse rate of 80, suggestive of positive orthostasis. * EEG was performed today, which was borderline abnormal EEG due to some possible left temporal sharply contoured waves. These waves were not clearly epileptiform in morphology. Clinical correlation is strongly recommended. Suggest prolonged EEG for further evaluation of any interictal epileptiform activity, if your suspicion of seizures is high. * Regarding intermittent hot flashes, suggest patient follow up with gynecology regarding adnexal mass, and to address possible hot flashes. * If vertigo recurs, would suggest ENT evaluation as an outpatient to evaluate for peripheral vestibular dysfunction. She probably would need outpatient VNG/ENG. * Patient's TSH is normal. B12 839 and folate > 20.0. * Neurologically clear for discharge.
[2021-05-01 15:20] VITALS: BP 106/70; PULSE 77; RESP 16; TEMP 98.4
--- NOTE | 2021-05-01 15:54 | EEG ---
ELECTROENCEPHALOGRAM REPORT DATE OF SERVICE: 05/01/2021 PREAMBLE: This is a 60-year-old female with recurrent episodes of hot flash with sweating. Rule out any seizure activity. EEG FINDINGS: This is a 21 channel digital EEG recorded with video component, utilizing 10/20 international system with referential and bipolar montages. Background consists of well developed, well regulated, moderate voltage activity in 8-9 hertz alpha. Background is posterior dominant and reactive to eye opening and closing. Photic driving response was seen with some flash frequencies. Occasional sharply contoured waves were seen in the left temporal region. Mild drowsiness was seen with appearance of bilaterally symmetric theta frequency rhythm. Deeper stages of sleep were not attained. EKG channel showed no arrhythmia. IMPRESSION: This is a borderline abnormal EEG due to some possible left temporal sharply contoured waves. These waves were not clearly epileptiform in morphology. Clinical correlation is strongly recommended. Suggest prolonged EEG for further evaluation of any interictal epileptiform activity. Suspicion for seizures is high. MMODL / IJN: [id number] / [facility]ITALBrianne
[2021-05-01] MEDS ORDERED: MECLIZINE 12.5 MG TAB PO PRN (16:56)
[2021-05-01] MEDS ORDERED: PANTOPRAZOLE 40 MG TABLET PO SCH (17:30)
[2021-05-02 02:59] LABS: Folate, Serum >20.00 ng/mL (4.40-31.00)
--- NOTE | 2021-06-05 18:00 | EM ---
EVENT MONITOR REFERRING PHYSICIAN: Dr. Dupree. INDICATION: Cardiac arrhythmia. The patient was monitored for 4 weeks. The baseline rhythm appeared to be sinus mechanism. The patient has been maintaining sinus minimum rhythm throughout the 4 weeks monitoring. No evidence of any tachy or bradyarrhythmia noted besides 1 episode of tachycardia of heart rate of 104 beats per minute. The patient reported symptoms. The patient also did have another episode of tachycardia with a heart rate of 112. No bradycardia noted. No arrhythmia noted. CONCLUSION: 1. This is a 30 day event monitor. 2. Sinus rhythm as a baseline mechanism. 3. Multiple episodes of sinus tachycardia. 4. No evidence of bradycardia noted. 5. No evidence of any ventricular or supraventricular arrhythmias noted in followup. MMODL / IJN: [id number] /
== END 2021-05-01 17:51 | disposition home or self-care (01) ==
LOC: EC 09:31 → 6NMEDSUR 13:34
PROVIDERS: ADMIT Family Medicine; ATTEND Family Medicine
DX: R55 Syncope and collapse (principal); I11.9 Hypertensive heart disease without heart failure; I34.0 Nonrheumatic mitral (valve) insufficiency; E86.0 Dehydration; M79.7 Fibromyalgia; Z20.822 Contact with and (suspected) exposure to COVID-19; K21.9 Gastro-esophageal reflux disease without esophagitis; N83.209 Unspecified ovarian cyst, unspecified side; K59.00 Constipation, unspecified; R19.7 Diarrhea, unspecified; R91.1 Solitary pulmonary nodule; K44.9 Diaphragmatic hernia without obstruction or gangrene; M51.9 Unspecified thoracic, thoracolumbar and lumbosacral intervertebral disc disorder; H91.91 Unspecified hearing loss, right ear; F41.9 Anxiety disorder, unspecified; Z79.82 Long term (current) use of aspirin; Z79.899 Other long term (current) drug therapy; Z90.49 Acquired absence of other specified parts of digestive tract; Z98.51 Tubal ligation status; Z87.442 Personal history of urinary calculi; Z87.891 Personal history of nicotine dependence; Z86.69 Personal history of other diseases of the nervous system and sense organs
CPT/HCPCS: 96376; 96361; 96374; 99285; 36415; 95816; 93005; 93306; 93270; 80053; 82607; 82746; 83735; 84484; 85025; 85610; 85730; 81001; 87635; 71046; 93880; 70450; 74177; G0378 ×2; C9113 ×2; Q9967; 80061

== ENCOUNTER 2021-05-16 10:37 | Day surgery (SDC) | payer BC ==
[2021-05-13 15:52] VITALS: BMI 29.2
[~2021-05-16 10:37] MED LIST changes: -LACTATED RINGERS 1,000 ML IV SCH; -LIDOCAINE 1% (10MG/ML) FOR IV START INTRADERMA PRN; +SODIUM CHLORIDE 0.9% 1,000 ML IV SCH
[2021-05-16] MEDS ORDERED: SODIUM CHLORIDE 0.9% 500 ML 500 ML IV ONE (11:37)
[2021-05-16 11:49] VITALS: RESP 16; TEMP 98.3
--- NOTE | 2021-05-16 16:52 | P.EPPROC ---
- EP Procedure Note Electrophysiology Procedure Note: Diagnosis Episodes of loss of consciousness Twelve-lead EKG shows sinus rhythm normal NH narrow QRS RSR prime noted in lead V1. Terminal small sharp signal in the QRS but absence of any T-wave inversions in the precordial leads No delta waves normal QT interval Tilt table test for protocol Baseline blood pressure ranges from 105/63-117/67 mmHg Baseline heart rate in the 60s Patient was tilted upright at an angle of 70 per protocol there was a mild drop in blood pressure to about 5-10.6 and remained so and remained stable throughout the procedure Heart rates remained in the 70s At the end of the procedure he is laid supine and the blood pressure returned back to baseline Impression Tilt table test reveals a very mild but sustained drop in blood pressure of 5-10 mmHg systolic blood pressure without any symptoms No evidence for neurocardiogenic syncope
[2021-05-16 17:34] VITALS: BP 120/77; PULSE 74
== END 2021-05-16 13:53 | disposition home or self-care (01) ==
LOC: CATHEP 10:37
PROVIDERS: ATTEND Internal Medicine Clinical Cardiac Electrophysiology
DX: R55 Syncope and collapse (principal); Z20.822 Contact with and (suspected) exposure to COVID-19; F17.210 Nicotine dependence, cigarettes, uncomplicated; Z79.82 Long term (current) use of aspirin
CPT/HCPCS: 81025; 87635; 93660

== ENCOUNTER → 2021-05-22 | Outpatient (CLI) | payer BC | LOC: NEUROMAIN 07:41 | PROVIDERS: ATTEND Psychiatry & Neurology Neurology | DX: R42 Dizziness and giddiness (principal); Z87.891 Personal history of nicotine dependence | CPT/HCPCS: 95713 ==

== ENCOUNTER → 2024-05-05 | Day surgery (SDC) | payer BC, MEDICARE ==
[2024-05-05] MEDS: IV FLUID CONTINUATION 1,000 ML IV ONE (11:45)
[2024-05-05] MEDS: SODIUM CHLORIDE 0.9% 1,000 ML IV SCH (12:05)
[2024-05-05] MEDS: NITROGLYCERIN SL TABS 0.4 MG TAB SUBLINGUAL ONE (12:28)
--- NOTE | 2024-05-05 14:13 | P.EPPROC ---
- EP Procedure Note Electrophysiology Procedure Note: Diagnosis Recurrent syncope Twelve-lead EKG shows sinus rhythm normal TX narrow QRS normal ST segments and normal QT interval Tilt table test per protocol with the sublingual nitroglycerin protocol Baseline blood pressure 115/63 mmHg Baseline blood pressure after sublingual nitroglycerin 0.4 mg in the supine position was 100/67 mmHg Patient was tilted upright at an angle of 70 degrees per protocol 10 minutes after administration of sublingual nitroglycerin Patient felt dizzy upon assuming upright position but her blood pressure remained between 100 210 mmHg systolic without any change in heart rate No evidence for neurocardiogenic syncope Impression Normal twelve-lead EKG No evidence for neurocardiogenic syncope with a provocative tilt table test with sublingual nitroglycerin Plan implantation of a loop monitor
[2024-05-05] MEDS: LIDOCAINE 1% INJ 10MG/ML (20 ML MDV) SQ ONE (14:24)
--- NOTE | 2024-05-05 14:39 | P.EPPROC ---
- EP Procedure Note Electrophysiology Procedure Note: Loop monitor implant Primary physicians: Dr. Dupree Learning Designer: Dr. Salter Indication: Recurrent syncope Patient was brought to the EP lab in a fasting state. Written informed consent was obtained prior to the procedure. The left pectoral area was prepped and draped per protocol. Intravenous antibiotic was administered preoperatively. A subcutaneous Loop monitor was implanted successfully and the wound was closed per protocol. The device was programmed to detect significant domenic- arrhythmic and tachy-arrhythmic events, per protocol. Device and programming details: Syncope protocol
[2024-05-05 15:05] VITALS: PULSE 62
[2024-05-05 15:06] VITALS: BP 103/63; RESP 17
[2024-05-05 18:00] VITALS: TEMP 97.8
== END ==
LOC: CATHEP 11:06
PROVIDERS: ATTEND Internal Medicine Clinical Cardiac Electrophysiology
DX: R55 Syncope and collapse (principal); I44.0 Atrioventricular block, first degree; F17.210 Nicotine dependence, cigarettes, uncomplicated; Z79.899 Other long term (current) drug therapy
CPT/HCPCS: 33285; J0690; J2003; 93660

== ENCOUNTER 2024-06-10 15:26 | Emergency (ER) | payer MEDICARE ==
[2024-06-10 15:47] VITALS: TEMP 98.2
[2024-06-10 16:17] LABS: Basophils # (A) 0.1 k/uL (0-0.2); Basophils % (A) 1 %; Eosinophils # (A) 0.1 k/uL (0-0.7); Eosinophils % (A) 2 %; HCT 43.8 % (34.0-46.0); HGB 14.4 gm/dL (11.4-16.0); Lymphocytes # (A) 2.1 k/uL (1.0-4.8); Lymphocytes % (A) 22 %; MCH 31.4 pg (25.0-35.0); MCHC 32.9 g/dL (31.0-37.0); MCV 95.2 fL (80.0-100.0); Mean Platelet Volume 7.2; Monocytes # (A) 0.4 k/uL (0-1.0); Monocytes % (A) 5 %; Neutrophils # (A) 6.5 k/uL (1.3-7.7); Neutrophils % (A) 70 %; Platelet Count 266 k/uL (150-450); RDW 12.8 % (11.5-15.5); WBC 9.3 k/uL (3.8-10.6)
[2024-06-10 16:36] LABS: ALT 31 U/L (4-34); AST 28 U/L (14-36); African American GFR (CKD) 57 (>60 ml/min/1.73 sqM); Albumin 4.2 g/dL (3.5-5.0); Alkaline Phosphatase 87 U/L (38-126); Anion Gap 8 mmol/L; Blood Urea Nitrogen 28 mg/dL (7-17); Calcium 9.2 mg/dL (8.4-10.2); Carbon Dioxide 19 mmol/L (22-30); Chloride 114 mmol/L (98-107); Glucose 143 mg/dL (74-99); Non-African American GFR(CKD) 49 (>60 ml/min/1.73 sqM); Potassium 3.7 mmol/L (3.5-5.1); Sodium 141 mmol/L (137-145); Total Bilirubin 0.5 mg/dL (0.2-1.3); Total Protein 6.5 g/dL (6.3-8.2)
--- NOTE | 2024-06-10 17:04 | CT ---
EXAMINATION TYPE: CT abdomen pelvis wo con DATE OF EXAM: 06/10/2024 4:39 PM COMPARISON: Multiple prior scans most recently dated 04/30/2021. CLINICAL INDICATION: Female, 63 years old with history of left flank pain rd to abd; Left side flank pain. TECHNIQUE: Axial CT abdomen pelvis wo con;Sagittal and coronal reformats were created on a separate workstation. Oral contrast used: without Oral Contrast (none if empty) CT DLP: 722.8 mGycm, Automated exposure control for dose reduction was used. FINDINGS: LOWER CHEST: No acute pathology. Stable groundglass 5 mm nodule in the left lower lobe. Scarring/atel ectasis in the lingula. ABDOMEN LIVER: Unremarkable GALLBLADDER AND BILE DUCTS: The gallbladder is surgically absent. PANCREAS: Unremarkable. SPLEEN: Unremarkable. ADRENAL GLANDS: Unremarkable. KIDNEYS AND URETERS: 3 mm calculus within the proximal left ureter (series 3 image 68) causing mild u pstream hydroureteronephrosis. There is left perinephric fat stranding/acute inflammatory changes. No nobstructing small calculus in the inferior right kidney. No definite right-sided hydronephrosis. PELVIS BLADDER: No evidence for wall thickening or mass given limitations of exam. REPRODUCTIVE: Uterus unremarkable. Increasing size of right adnexal cystic mass, now measuring 6.6 x 5.2 cm. ABDOMEN & PELVIS STOMACH AND BOWEL: Small to moderate sized hiatal hernia with postsurgical changes noted at the gastr ic esophageal junction. No evidence of small bowel obstruction. Appendix normal. Few scattered coloni c diverticula without acute diverticulitis. PERITONEUM/RETROPERITONEUM: No evidence of pneumoperitoneum or free fluid. VASCULATURE: No evidence of aortic aneurysm. MUSCULOSKELETAL: No acute osseous abnormalities LYMPH NODES: No gross evidence for lymphadenopathy. SOFT TISSUE/ABDOMINAL WALL: Unremarkable IMPRESSION: 1. Partially obstructing 3 mm calculus in the proximal left ureter causing mild upstream hydronephro sis and left perinephric inflammatory changes. 2. Increasing size of cystic mass in the right adnexa, now measuring 6.6 x 5.2 cm. Recommend outpati ent pelvic ultrasound for further evaluation. 3. Additional nonacute findings as above. [facility], , 06/10/2024 4:52 PM
--- NOTE | 2024-06-10 17:50 | ED ---
General Adult HPI - General Chief complaint: Back Pain/Injury Stated complaint: L side pain, nausea Time Seen by Provider: 06/10/24 15:45 Source: patient, RN notes reviewed Mode of arrival: ambulatory Limitations: no limitations - History of Present Illness Initial comments: This is a 63-year-old female with history of nephrolithiasis presenting with le ft flank pain x 2 days. Patient states pain was sudden onset described as sharp and constant, radiating to left abdomen. Endorses associated nausea/vomiting, chills and sweating. States pain is worse when eating, sitting and moving. Denies urinary symptoms, hematuria. Onset/Timin -: days(s) Location: back Radiation: abdomen Quality: sharp Consistency: constant Improves with: none Worsens with: eating, movement Associated Symptoms: diaphoresis, fever/chills, nausea/vomiting - Related Data Home Medications Medication Instructions Recorded Confirmed Fish Oil/Dha/Epa [Fish Oil 1,200 1 cap PO DAILY 04/30/17 05/03/24 mg Fish Oil] Multivitamins, Thera [Multivitamin 1 tab PO DAILY 04/30/17 05/03/24 (formulary)] Ascorbic Acid [Vitamin C] 1,000 mg PO DAILY 11/14/20 05/03/24 Cholecalciferol [Vitamin D3 (25 50 mcg PO DAILY 11/14/20 05/03/24 Mcg = 1000 Iu)] Escitalopram Oxalate [Lexapro] 20 mg PO DAILY 04/30/21 05/05/24 Amitriptyline HCl [Elavil] 10 mg PO HS 05/03/24 05/03/24 Atorvastatin [Lipitor] 10 mg PO HS 05/03/24 05/03/24 Cyanocobalamin (Vitamin B-12) 1,000 mcg PO DAILY 05/03/24 05/03/24 [Vitamin B-12] Gabapentin [Neurontin] 100 mg PO TID 05/03/24 05/05/24 QUEtiapine [SEROquel] 100 mg PO HS 05/03/24 05/03/24 Topiramate [Topamax] 100 mg PO BID 05/03/24 05/05/24 Previous Rx's Medication Instructions Recorded Tamsulosin [Flomax] 0.4 mg PO DAILY #10 cap 06/10/24 Allergies Allergy/AdvReac Type Severity Reaction Status Date / Time adhesive tape AdvReac Rash/Hives Verified 05/05/24 11:49 Review of Systems ROS Statement: Those systems with pertinent positive or pertinent negative responses have been documented in the HPI. ROS Other: All systems not noted in ROS Statement are negative. 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 LITHOTRIPSY, franck carpal tunnel, Past Anesthesia/Blood Transfusion Reactions: No Reported Reaction, Motion Sickness Past Psychological History: Anxiety, Panic Disorder Smoking Status: Former smoker - Past Family History Mother Family Medical History: Cancer Sister(s) Family Medical History: Cancer Additional Family Medical History / Comment(s): uterine Daughter(s) Family Medical History: Cancer Additional Family Medical History / Comment(s): uterine General Exam Limitations: no limitations General appearance: alert, in no apparent distress Head exam: Present: atraumatic, normocephalic, normal inspection Eye exam: Present: normal appearance, PERRL, EOMI. Absent: scleral icterus, conjunctival injection, periorbital swelling ENT exam: Present: normal exam, mucous membranes moist Neck exam: Present: normal inspection. Absent: tenderness, meningismus, lymphadenopathy Respiratory exam: Present: normal lung sounds bilaterally. Absent: respiratory distress, wheezes, rales, rhonchi, stridor Cardiovascular Exam: Present: regular rate, normal rhythm, normal heart sounds. Absent: systolic murmur, diastolic murmur, rubs, gallop, clicks GI/Abdominal exam: Present: soft, normal bowel sounds. Absent: distended, tenderness, guarding, rebound, rigid Extremities exam: Present: normal inspection, full ROM, normal capillary refill. Absent: tenderness, pedal edema, joint swelling, calf tenderness Back exam: Present: normal inspection, CVA tenderness (L). Absent: CVA tenderness (R) Neurological exam: Present: alert, oriented X3, CN II-XII intact Psychiatric exam: Present: normal affect, normal mood Skin exam: Present: warm, dry, intact, normal color. Absent: rash Course Vital Signs 06/10/24 06/10/24 15:44 19:46 Temperature 98.2 F 98.2 F Pulse Rate 105 H 95 Respiratory 20 18 Rate Blood Pressure 90/60 109/63 O2 Sat by Pulse 95 99 Oximetry Medical Decision Making - Medical Decision Making Was pt. sent in by a medical professional or institution ([facility], [facility], urgent care, hospital, or care home...) When possible be specific @ -No Did you speak to anyone other than the patient for history (EMS, parent, family, police, friend...)? What history was obtained from this source @ -No Did you review nursing and triage notes (agree or disagree)? Why? @ -I reviewed and agree with nursing and triage notes Were old charts reviewed (outside hosp., previous admission, EMS record, old EKG, old radiological studies, urgent care reports/EKG's, care home records)? Report findings @ -No old charts were reviewed Differential Diagnosis (chest pain, altered mental status, abdominal pain women, abdominal pain men, vaginal bleeding, weakness, fever, dyspnea, syncope, headache, dizziness, GI bleed, back pain, seizure, CVA, palpatations, mental health, musculoskeletal)? @ -Differential Back Pain: Strain, zoster, cauda equina syndrome, epidural abscess, vertebral osteomyelitis, discitis, fracture, subluxation, disc herniation, DJD, spinal stenosis, dissection, AAA, pancreatitis, peptic ulcer disease, pyelonephritis, kidney stone, this is not meant to be an all-inclusive list. EKG interpreted by me (3pts min.). @ -Not done X-rays interpreted by me (1pt min.). @ -None done CT interpreted by me (1pt min.). @ -Abdomen/pelvic CT shows partially obstructing 3 mm calculus of the left proximal left ureter causing hydronephrosis and inflammatory changes. Increasing size of cystic mass of right adnexa also noted-outpatient pelvic ultrasound advised. U/S interpreted by me (1pt. min.). @ -None done What testing was considered but not performed or refused? (CT, X-rays, U/S, labs)? Why? @ -None What meds were considered but not given or refused? Why? @ -None Did you discuss the management of the patient with other professionals (professionals i.e. DrRita, PA, [employer] D[employer]ER, lab, RT, psych nurse, professor of social work, gate tender, t eacher, mounted police officer, case filler)? Give summary @ -No Was smoking cessation discussed for >3mins.? @ -No Was critical care preformed (if so, how long)? @ -No Were there social determinants of health that impacted care today? How? (Homelessness, low income, unemployed, alcoholism, drug addiction, transportation, low edu. Level, literacy, decrease access to med. care, fci, rehab)? @ -No Was there de-escalation of care discussed even if they declined (Discuss DNR or withdrawal of care, Hospice)? DNR status @ -No What co-morbidities impacted this encounter? (DM, HTN, Smoking, COPD, CAD, Cance r, CVA, ARF, Chemo, Hep., AIDS, mental health diagnosis, sleep apnea, morbid obesity)? @ -None Was patient admitted / discharged? Hospital course, mention meds given and route, prescriptions, significant lab abnormalities, going to OR and other pertinent info. @ -Lab work shows dehydration but otherwise unremarkable including negative UA. Abdomen/pelvic CT shows partially obstructing 3 mm calculus of the left proximal left ureter causing hydronephrosis and inflammatory changes. Incre asing size of cystic mass of right adnexa also noted-outpatient pelvic ultrasound advised. Flomax sent to patient's pharmacy. Advised to increase oral hydration and follow-up with PCP/urology. Undiagnosed new problem with uncertain prognosis? @ -No Drug Therapy requiring intensive monitoring for toxicity (Heparin, Nitro, Insulin, Cardizem)? @ -No Were any procedures done? @ -No Diagnosis/symptom? @ -Nephrolithiasis Acute, or Chronic, or Acute on Chronic? @ -Acute Uncomplicated (without systemic symptoms) or Complicated (systemic symptoms)? @ -Complicated Side effects of treatment? @ -No Exacerbation, Progression, or Severe Exacerbation? @ -No Poses a threat to life or bodily function? How? (Chest pain, USA, ID, pneumonia, PE, COPD, DKA, ARF, appy, cholecystitis, CVA, Diverticulitis, Homicidal, Suicidal, threat to staff... and all critical care pts) @ -No - Lab Data Result diagrams: 06/10/24 16:07 06/10/24 16:07 Lab Results 06/10/24 06/10/24 06/10/24 Range/Units 16:07 16:07 18:45 WBC 9.3 (3.8-10.6) k/uL RBC 4.60 (3.80-5.40) m/uL Hgb 14.4 (11.4-16.0) gm/dL Hct 43.8 (34.0-46.0) % MCV 95.2 (80.0-100.0) fL MCH 31.4 (25.0-35.0) pg MCHC 32.9 (31.0-37.0) g/dL RDW 12.8 (11.5-15.5) % Plt Count 266 (150-450) k/uL MPV 7.2 Neutrophils % 70 % Lymphocytes % 22 % Monocytes % 5 % Eosinophils % 2 % Basophils % 1 % Neutrophils # 6.5 (1.3-7.7) k/uL Lymphocytes # 2.1 (1.0-4.8) k/uL Monocytes # 0.4 (0-1.0) k/uL Eosinophils # 0.1 (0-0.7) k/uL Basophils # 0.1 (0-0.2) k/uL Sodium 141 (137-145) mmol/L Potassium 3.7 (3.5-5.1) mmol/L Chloride 114 H (98-107) mmol/L Carbon Dioxide 19 L (22-30) mmol/L Anion Gap 8 mmol/L BUN 28 H (7-17) mg/dL Creatinine 1.19 H (0.52-1.04) mg/dL Est GFR (CKD-EPI)AfAm 57 (>60 ml/min/1.73 sqM) Est GFR (CKD-EPI)NonAf 49 (>60 ml/min/1.73 sqM) Glucose 143 H (74-99) mg/dL Calcium 9.2 (8.4-10.2) mg/dL Total Bilirubin 0.5 (0.2-1.3) mg/dL AST 28 (14-36) U/L ALT 31 (4-34) U/L Alkaline Phosphatase 87 (38-126) U/L Total Protein 6.5 (6.3-8.2) g/dL Albumin 4.2 (3.5-5.0) g/dL Urine Color Yellow Urine Appearance Cloudy H (Clear) Urine pH 5.5 (5.0-8.0) Ur Specific [place] 1.021 (1.001-1.035) Urine Protein Negative (Negative) Urine Glucose (UA) Negative (Negative) Urine Ketones Negative (Negative) Urine Blood Moderate H (Negative) Urine Nitrite Negative (Negative) Urine Bilirubin Negative (Negative) Urine Urobilinogen <2.0 (<2.0) mg/dL Ur Leukocyte Esterase Trace H (Negative) Urine RBC >182 H (0-5) /hpf Urine WBC 6 H (0-5) /hpf Ur Squamous Epith Cells <1 (0-4) /hpf Urine Mucus Rare H (None) /hpf Disposition Clinical Impression: Nephrolithiasis Disposition: HOME SELF-CARE Condition: Good Instructions (If sedation given, give patient instructions): Kidney Stones (ED) Additional Instructions: Follow-up with PCP for ongoing pain and for outpatient ultrasound imaging of adnexal mass Prescriptions: Tamsulosin [Flomax] 0.4 mg PO DAILY #10 cap Is patient prescribed a controlled substance at d/c from ED?: No Referrals: Eyal Dupree MD [Primary Care Provider] - 1-2 days Time of Disposition: 19:37
[2024-06-10 18:59] LABS: Appearance,Urine Cloudy (Clear); Bilirubin,Urine Negative (Negative); Blood,Urine Moderate (Negative); Color,Urine Yellow; Glucose,Urine (UA) Negative (Negative); Ketones,Urine Negative (Negative); Leukocyte Esterase,Urine Trace (Negative); Mucus,Urine Rare /hpf; Nitrite,Urine Negative (Negative); PH, Urine 5.5 (5.0-8.0); Protein,Urine Negative (Negative); RBC,Urine >182 /hpf (0-5); Specific Gravity,Urine 1.021 (1.001-1.035); Squamous Epithelial Cell,Urine <1 /hpf (0-4); Urobilinogen,Urine <2.0 mg/dL (<2.0); WBC,Urine 6 /hpf (0-5)
[2024-06-10 19:47] VITALS: BP 109/63; PULSE 95; RESP 18
== END 2024-06-10 19:47 | disposition home or self-care (01) ==
LOC: EC 15:26
DX: N13.2 Hydronephrosis with renal and ureteral calculous obstruction (principal); Z87.891 Personal history of nicotine dependence; Z88.8 Allergy status to other drugs, medicaments and biological substances
CPT/HCPCS: 36415; 74176; 80053; 81001; 85025; 99284

== ENCOUNTER → 2024-06-16 | Outpatient (CLI) | payer MEDICARE ==
--- NOTE | 2024-06-16 14:33 | CTL ---
EXAMINATION TYPE: CT Low Dose Lung DATE OF EXAM ORDERED: 06/16/2024 COMPARISON: CTA thoracoabdominal pelvis aorta 08/02/2020 CLINICAL INDICATION: Female, 63 years old with history of Z12.2 ENCNTR SCREEN FOR MALIGNANT NEOPLASM OF RESP; PHH, Former smoker quit x9yrs ago. Hx of 1.5PPD x35yrs., Lung cancer screening, History of S moking/tobacco use. TECHNIQUE: Low dose computed tomography scan was performed through the chest at 1 mm thick sections a nd reconstructed images in multiple planes at 1 mm and [address] DLP: 133.[address] CTDI: 3.9 mGy Automated exposure control for dose reduction was used. CT DIAGNOSTIC QUALITY: Satisfactory FINDINGS: Nodules: Left lower lobe 4.9 mm pulmonary nodular density (series 6, image 32). LUNGS: COPD: Severity: Minimal Fibrosis: Severity: None Lymph nodes: None Other findings: Few scattered regions of linear scarring. RIGHT PLEURAL SPACE: Effusion: None Calcification: None Thickening: None Pneumothorax: None LEFT PLEURAL SPACE: Effusion: None Calcification: None Thickening: None Pneumothorax: None HEART: Heart Size: Mildly Enlarged Coronary Calcification: Small Pericardial Effusion: None OTHER FINDINGS: Upper abdomen: Post surgical change of the GE junction with small hiatal hernia. Gallbladder surgical ly absent. Bony thorax: None Supraclavicular region: None Other: Mild atherosclerotic calcification of the aortic arch and its branches. Left anterior chest wa ll loop recorder. IMPRESSION: 1. Left lower lobe 4.9 mm pulmonary nodular density . 2. Minimal COPD changes. CT LUNG RAD AND CT CHEST RECOMMENDATION: Lung-Rad 2 Benign Appearance or Behavior: Continue annual sc reening with LDCT in 12 months. S Modifier (other clinically significant findings): None [facility], , 06/16/2024 2:30 PM
== END | disposition home or self-care (01) ==
LOC: RADCTMAIN 13:49
PROVIDERS: ATTEND Family Medicine
DX: Z12.2 Encounter for screening for malignant neoplasm of respiratory organs (principal); J44.9 Chronic obstructive pulmonary disease, unspecified; J98.4 Other disorders of lung; Z87.891 Personal history of nicotine dependence
CPT/HCPCS: 71271

== ENCOUNTER → 2024-06-16 | Outpatient (CLI) | payer MEDICARE ==
--- NOTE | 2024-06-16 17:49 | MM ---
Reason for Exam: Screening (asymptomatic). Last mammogram was performed 3 year(s) and 8 month(s) ago. Patient History: Menarche at age 15. First Full-Term at age 20. Maternal aunt had breast cancer, age 40. Mother had breast cancer, age 50. Risk Values: Claribel 5 year model risk: 2.8%. NCI Lifetime model risk: 12.9%. Prior Study Comparison: 12/07/2017 Bilateral Screening Mammogram, [facility]. 12/29/2018 Bilateral Screening Mammogram, [facility]. 11/06/2020 Bilateral Screening Mammogram, [facility]. Tissue Density: There are scattered areas of fibroglandular density. Findings: Analyzed By CAD. The pattern is symmetrical. There is a stable focal asymmetry in the upper outer left breast. Nodularity is within the right breast. This is increased in size currently measuring 0.5 cm. The upper outer right breast 17 cm the nipple. Additional workup with ultrasound recommended. Left breast:No suspicious groups of microcalcifications, spiculated or lobular masses, architectural distortion or other secondary signs of malignancy are mammographically apparent. Overall Assessment: Incomplete: need additional imaging evaluation, BI-RAD 0 Management: Diagnostic Breast Ultrasound of the right breast. A negative mammogram report should not preclude additional follow up of suspicious palpable abnormalities. Patient should continue monthly self breast exam. A clinical breast exam by your physician is recommended on an annual basis and results should be correlated with mammographic findings. Note on Claribel scores and lifetime risk: 1. A Claribel score greater than 3% is considered moderate risk. If this is the case, consider specialist referral to assess eligibility for a risk reducing agent. 2. If overall lifetime risk for the development of breast cancer is 20% or higher, the patient may qualify for future screening with alternating mammogram and breast MRI. [facility], , 06/16/2024 5:46 PM. Electronically signed and approved by: Richard Cason D.O. Radiologis
--- NOTE | 2024-06-16 19:28 | BD ---
EXAMINATION TYPE: Axial Bone Density DATE OF EXAM: 06/16/2024 CLINICAL HISTORY: 63 years old Female. ICD-10 CODE: N951 POST YUNIOR SYMPTOMS , Additional History: Height: 62.5 Weight: 187.4 FRAX RISK QUESTIONS: Alcohol (3 or more units per day): no Family History (Parent hip fracture): no Glucocorticoids (More than 3mos): no (Ex: prednisone, prednisolone, methylprednisolone, dexamethasone, and hydrocortisone). History of Fracture in Adulthood: no Secondary Osteoporosis: 1. Type 1 Diabetes: no 2. Hyperthyroidism: no 3. Menopause before 45: no 4. Malnutrition: no 5. Chronic liver disease: no Rheumatoid Arthritis: no Current Tobacco Use: no RISK FACTORS HISTORY OF: Hip Fracture (Right/Left): no Spine Fracture: no History of Wrist Fracture: no Surgery to Spine/Hip(right/left)/Wrist (right/left): no MEDICATIONS: Thyroid Medications: no Osteoporosis Medications: no EXAM MEASUREMENTS: Bone mineral densitometry was performed using the [employer] System. Bone mineral density as measured about the Lumbar spine is: ----- L1-L4(G/cm2): 1.120 T Score Values are as follows: ----- L1: -0.8 ----- L2: 0.5 ----- L3: -0.6 ----- L4: -1.0 ----- L1-L4: -0.5 Z Score Values are as follows: ----- L1: -0.1 ----- L2: 1.2 ----- L3: 0.1 ----- L4: -0.4 ----- L1-L4: 0.2 Bone mineral density has: increased 0.4 % since study of: 11/06/2020 Bone mineral density about the R hip (g/cm2): 0.886 Bone mineral density about the L hip (g/cm2): 0.909 T Score values are as follows: -----R Neck: -1.2 -----L Neck: -1.3 -----R Total: -1.0 -----L Total: -0.8 Z Score values are as follows: -----R Neck: -0.3 -----L Neck: -0.4 -----R Total: -0.4 -----L Total: -0.3 Bone mineral density has: increased 0.4 % since study of: 11/06/2020 FRAX%s: The graph provided illustrates a 7.4% chance for a major osteoporotic fx and a 0.6% chance fo r the hips probability for fx in 10 years time. IMPRESSION: Osteopenia (T Score between -2.5 and -1). There is slightly increased risk of fracture and the patient may be considered for treatment. Re-Screen 2-5 years. NOTE: T-SCORE=SD OF THE YOUNG ADULT MEAN. [facility], , 06/16/2024 7:25 PM
== END | disposition home or self-care (01) ==
LOC: RADBDWWP 14:11
PROVIDERS: ATTEND Family Medicine
DX: Z12.31 Encounter for screening mammogram for malignant neoplasm of breast (principal); R92.323 Mammographic fibroglandular density, bilateral breasts; M85.89 Other specified disorders of bone density and structure, multiple sites; N95.1 Menopausal and female climacteric states; Z80.3 Family history of malignant neoplasm of breast
CPT/HCPCS: 77067; 77080

== ENCOUNTER → 2024-06-23 | Outpatient (CLI) | payer MEDICARE ==
--- NOTE | 2024-06-23 14:55 | USB ---
Reason for Exam: Additional evaluation requested from prior study. Patient History: Menarche at age 15. First Full-Term at age 20. Maternal aunt had breast cancer, age 40. Mother had breast cancer, age 50. Risk Values: Claribel 5 year model risk: 2.8%. NCI Lifetime model risk: 12.9%. Technique: Method: Targeted. Prior Study Comparison: 12/29/2018 Bilateral Screening Mammogram, [facility]. 11/06/2020 Bilateral Screening Mammogram, [facility]. 06/16/2024 Bilateral MG screening mammo w CAD, [facility]. Findings: The upper section of the breast of the right breast, the axilla of the right breast and the retroareolar of the right breast were scanned. Technique utilized:US breast workup limited RT Image; Ultrasound imaging of: Area of concern, retroareolar region and axilla. No evidence for organizing fluid collection or mass. Small lymph node at 10:00 7 cm from nipple correlate with mammography. Overall Assessment: Benign, BI-RAD 2 Management: Screening Mammogram of both breasts in 1 year. A clinical breast exam by your physician is recommended on an annual basis and results should be correlated with mammographic findings. This exam should not preclude additional follow-up of suspicious palpable abnormalities. Results were given to the patient verbally at the time of exam. [facility], , 06/23/2024 2:53 PM. Electronically signed and approved by: Alfredo Guillermo DO
== END | disposition home or self-care (01) ==
LOC: RADUSWWP 14:19
PROVIDERS: ATTEND Family Medicine
DX: R92.8 Other abnormal and inconclusive findings on diagnostic imaging of breast (principal); Z80.3 Family history of malignant neoplasm of breast